=== PATIENT | female | born 1995 | race American Indian/Alaskan Native ===

== ENCOUNTER 2021-10-07 13:26 | Inpatient (IN) | payer OTHER ==
[2021-10-07 15:16] LABS: Bacteria,Urine 4+ /HPF (Negative); Bilirubin,Urine NEG (Negative); Blood,Urine SM (Negative); Color,Urine Yellow (Yellow); Mucus,Urine 2+ /HPF; Protein,Urine <15 mg/dL mg/dL (Negative); Urobilinogen,Urine < 2.0 mg/dL (<2.0)
[2021-10-07 15:34] LABS: Hematocrit 35.4 % (30.3-42.9); Hemoglobin 11.9 gm/dl (10.1-14.3); Mean Corpuscular HGB Conc 34 % (30-34); Mean Corpuscular Volume 85 fl (79-97); Platelet Count 219 K/mm3 (140-440); Red Blood Count 4.17 M/mm3 (3.65-5.03); Red Cell Distribution Width 15.7 % (13.2-15.2)
[2021-10-07 15:48] LABS: Alanine Aminotransferase 11 units/L (7-56); Uric Acid 2.8 mg/dL (3.5-7.6)
[2021-10-07] MEDS ORDERED: ACETAMINOPHEN 500 MG TAB PO ONE (16:00)
[2021-10-07] MEDS ORDERED: ACETAMINOPHEN 325 MG TAB PO PRN (16:43)
--- NOTE | 2021-10-07 16:52 | History and Physical Report ---
History of Present Illness Date of examination: 10/07/21 Date of admission: 10/07/2021 Chief complaint: "My blood pressures were high in the office." History of present illness: 26yo G1 @36.5 weeks sent from the clinic for SRBP (180/100, repeat 170/100). Pt also endorsing headache and spots before her eyes this morning; not currently having headache or spots. Affirms movement and denies vaginal bleeding and LOF. Pt being followed by [facility] for elevated BMI (46). Latest BPP from [facility] was on 09/22 and was 8/8 with EFW 48th. Ultrasound from the week is not yet available. EDC Calculations LMP: 10/30/2021 Gestational Age: 36.5 weeks on admission Past History : 1 Term Births: 0 Premature Births: 0 Living Children: 0 Para: 0 Mult. Births: 0 Prev : 0 Aborta: 0 Elect. Ab: 0 Spont. Ab: 0 Ectopics: 0 Past Medical History: Reviewed and updated today: Asthma Past Surgical History: Reviewed and updated today: negative Family History Summary: Mother - Has Family History of Hypertension - Entered On: 02/24/2021 Social History: Patient is single Smoking History: Patient has never smoked. Risk Factors: Smoked Tobacco Use: Never smoker Smokeless Tobacco Use: Never Counseled to Quit/Cut Down: yes Passive Smoke Exposure: no HIV High Risk Behavior: no Exercise: yes Times/wk: 0 Seatbelt Use: preg-[facility] % Sun Exposure: rarely No Dietary Counseling Reason: pn yes Past Medical History Anesthesia Complications: negative Anemia: negative Autoimmune Disorder: negative Bleeding Disorder: negative Blood Transfusions: negative Breast Disease: negative Diabetes: negative Heart Disease: negative Hypertension: negative Hepatitis/Liver Disease: negative Kidney Disease/UTI: negative Neurologic/Epilepsy/Migraines: negative Phlebitis/Varicosities: negative Psychiatric: negative Pulmonary Disease/Asthma: negative Thyroid Disease: negative Hospitalizations: negative Surgery (Non-home assessment nurse): negative Abnormal PAP: negative RAEGAN Exposure: negative Infertility: negative Uterine Anomaly: negative Uterine Surgery (not C/S): negative Other Gynecologic Problems: negative Social Hx: Patient is single Smoking History: Patient has never smoked. Infection History Hx of STD: none HIV Risk Eval: no Hepatitis B Risk Eval: low risk Personal hx. of genital herpes: no Partner hx. of genital herpes: no Rash, Viral, or Febrile illness since last LMP? no Varicella/Chicken Pox Status: Previous Disease TB Risk: no Genetic History Congenital Heart Defect: Mom: no Dad: no Shireen Disease: Mom: no Dad: no Thalassemia Mom: no Dad: no Neural Tube Defect Mom: no Dad: no Down's Syndrome Mom: no Dad: no Armando-Sachs Mom: no Dad: no Sickle Cell Disease/Trait Mom: no Dad: no Hemophilia Mom: no Dad: no Muscular Dystrophy Mom: no Dad: no Cystic Fibrosis Mom: no Dad: no Cole Chorea Mom: no Dad: no Mental Retardation Mom: no Dad: no Fragile X Mom: no Dad: no Other Genetic/Chromosomal Disorder Mom: no Dad: no Child w/other defect Mom: no Dad: no Enviromental Exposures Xray Exposure: no Medication, drug, or alcohol use since LMP: no Chemical/Other Exposure: no Exposure to Cat Liter: no Hx of Parvovirus (Fifth Disease): no Occupational Exposure to Children: none Active Medications (reviewed today): None Current Allergies (reviewed today): * POLLEN (Critical) Past History Past Medical History: asthma, other (BMI (46)) Past Surgical History: no surgical history Family/Genetic History: hypertension (mother) Social history: no significant social history - Obstetrical History Expected Date of Delivery: 10/30/21 Actual Gestation: 36 Week(s) 5 Day(s) : 1 Para: 0 Hx # Term Pregnancies: 0 Number of Pregnancies: 0 Spontaneous Abortions: 0 Induced : 0 Number of Living Children: 0 Medications and Allergies Allergies Allergy/AdvReac Type Severity Reaction Status Date / Time No Known Allergies Allergy Unverified 10/07/21 14:14 Active Meds: Active Medications Acetaminophen (Acetaminophen 325 Mg Tab) 1,000 mg PO Q6H PRN PRN Reason: Pain, Mild (1-3) Butorphanol Tartrate (Butorphanol 2 Mg/1 Ml Inj) 1 mg IV Q2H PRN PRN Reason: Pain, Moderate(4-6) LABOR PAIN Carboprost Tromethamine (Carboprost Tromethamine 250 Mcg/1 Ml Inj) 250 mcg IM ONCE PRN PRN Reason: Uterine Bleeding Ephedrine Sulfate (Ephedrine Sulfate 50 Mg/1 Ml Inj) 10 mg IV Q2M PRN PRN Reason: Hypotension Fentanyl (Fentanyl 100 Mcg/2 Ml Inj) 100 mcg IV Q2H PRN PRN Reason: Pain,Severe (7-10) LABOR PAIN Oxytocin/Sodium Chloride (Pitocin/Ns 30 Unit/500ml) 30 units in 500 mls @ 2 mls/hr IV TITR PHAN; Protocol Lactated Ringer's (Lactated Ringers) 1,000 mls @ 125 mls/hr IV DIRECT PHAN Oxytocin/Sodium Chloride (Pitocin/Ns 30 Unit/500ml) 30 units in 500 mls @ 40 mls/hr IV TITR PHAN; Protocol Lidocaine (Lidocaine (2%) 20 Mg/1 Ml Vial 20 Ml Mdv) 20 ml INFILTRATI ONCE ONE Stop: 10/07/21 16:44 Loperamide HCl (Loperamide 2 Mg Cap) 2 mg PO ONCE PRN PRN Reason: give with Hemabate Methylergonovine Maleate (Methylergonovine Maleate 0.2 Mg/Ml Vial) 0.2 mg IM ONCE PRN PRN Reason: Uterine Bleeding Mineral Oil (Mineral Oil 30 Ml Oral Liqd) 30 ml PO QHS PRN PRN Reason: Constipation Misoprostol (Misoprostol 200 Mcg Tab) 800 mcg VA ONCE PRN PRN Reason: Uterine Bleeding Naloxone HCl (Naloxone 0.4 Mg/1 Ml Inj) 0.1 mg IV Q2MIN PRN PRN Reason: Res Rate </= 8 or 02 SAT < 92% Ondansetron HCl (Ondansetron 4 Mg/2 Ml Inj) 4 mg IV Q8H PRN PRN Reason: Nausea And Vomiting Oxytocin (Oxytocin 10 Unit/1 Ml Inj) 10 unit IM ONCE PRN PRN Reason: Uterine Bleeding Promethazine HCl (Promethazine 25 Mg Tab) 25 mg PO Q6H PRN PRN Reason: Nausea And Vomiting Terbutaline Sulfate (Terbutaline 1 Mg/1 Ml Inj) 0.25 mg SUB-Q ONCE PRN PRN Reason: Hyperstimulation/Hypertonicity Review of Systems All systems: negative Constitutional: other (headache) Eyes: blurred vision, other (spots before her eyes) Cardiovascular: high blood pressure Respiratory: dyspnea on exertion Breasts: deferred Genitourinary: deferred Rectal Exam: deferred - Vital Signs Vital signs: Vital Signs Pulse BP 97 H 152/86 10/07/21 14:13 10/07/21 14:13 Temp Pulse Resp BP Pulse Ox 102 H 130/75 03/01/22 16:42 10/07/21 16:[address] Padilla regarding patient. Plan to proceed with IOL d/t severe range blood pressures and c/o BISHOP and spots before her eyes earlier today. Currently she denies BISHOP, blurred vision, spots before her eyes, chest pain, shortness of breath, and upper abdominal pain. - Physical Exam Breasts: Positive: deferred Cardiovascular: Regular rate Lungs: Positive: Clear to auscultation, Normal air movement Abdomen: Positive: soft Genitourinary (Female): Positive: normal external genitalia, normal perenium Vulva: both: normal Uterus: Positive: enlarged ( and morbid obesity.) Extremities: Positive: normal - Obstetrical FHR: category 1 Uterine Contraction Monitor Mode: External Cervical Dilatation: 0 (per Dr Padilla @1700) Cervical Effacement Percentage: 20 station: -4 Uterine Contraction Frequency (min): quiet Uterine Contraction Pattern: Absent Uterine Tone Measurement Phase: Resting Results Result Diagrams: 10/07/21 15:05 10/07/21 15:05 Abnormal lab results 10/07/21 10/07/21 10/07/21 Range/Units 13:41 15:05 15:05 RDW 15.7 H (13.2-15.2) % Creatinine 0.5 L (0.6-1.2) mg/dL Uric Acid 2.8 L (3.5-7.6) mg/dL Lactate Dehydrogenase 234 H (91-180) units/L Urine WBC (Auto) 11.0 H (0.0-6.0) /HPF All other labs normal. GBS NEGATIVE HBsAg Screen Negative Negative *1 RPR Non Reactive Non Reactive *2 Rubella Antibodies, IgG [L] <0.90 index Immune >0.99 *3 Non-immune <0.90 Equivocal 0.90 - 0.99 Immune >0.99 ABO Grouping O *4 Rh Factor Positive *5 Please note: Prior records for this patient's ABO / Rh type are not available for additional verification. Antibody Screen Negative Negative *6 Tests: (2) HB Solu + Rflx Frac (502835) Hemoglobin (Hgb) Solubility Negative Negative *31 Tests: (3) HIV Ag/Ab with Reflex ([id number]) HIV Screen 4th Generation wRfx Non Reactive Non Reactive *32 Tests: (4) HCV Antibody reflex to WEI ([id number]) ! HCV Ab <0.1 s/co ratio 0.0-0.9 *33 Tests: (5) Interpretation: ([id number]) ! Interpretation: SPRCS *34 Negative Not infected with HCV, unless recent infection is suspected or other evidence exists to indicate HCV infection. Assessment and Plan A: G1 @ 36.5 weeks sent from the clinic for severe range blood pressures. -Coral Ashton CNM & [facility] - Patient Problems (1) BMI 45.0-49.9, adult Current Visit: Yes Status: Chronic (2) with 36 to 37 weeks completed gestation Current Visit: Yes Status: Acute Plan to address problem: Continue to monitor well-being via cEFM (3) Preeclampsia Current Visit: Yes Status: Acute Qualifiers: Trimester: third trimester Qualified Code(s): O14.93 - Unspecified pre- eclampsia, third trimester Plan to address problem: Admit to L&D for IOL Draw admission labs and pre-eclampsia labs. Initiate IV access. Pt desires to eat and shower prior to starting IOL. OK per provider. Start IOL with low dose Pitocin. Monitor for signs and symptoms of worsening pre-eclampsia. Warning signs and symptoms reviewed with pt. Monitor blood pressure. Please notify provider for BP greater than or equal to 140/90. Hold off on magnesium infusion for now. Anticipate . (4) Rubella non-immune status, antepartum Current Visit: Yes Status: Acute Plan to address problem: Vaccine .
[2021-10-07] MEDS ORDERED: LIDOCAINE (2%) 20 MG/1 ML VIAL 20 ML MDV INFILTRATI NR (17:00)
[2021-10-07] MEDS ORDERED: LOPERAMIDE 2 MG CAP PO PRN (17:00)
[2021-10-07] MEDS ORDERED: CARBOPROST TROMETHAMINE 250 MCG/1 ML INJ IM PRN (17:00)
[2021-10-07] MEDS ORDERED: OXYTOCIN DRIP 30 UNITS/500 ML BAG IV SCH ×2 (17:00)
[2021-10-07] MEDS ORDERED: ePHEDrine SULFATE 50 MG/1 ML INJ IV PRN (17:00)
[2021-10-07] MEDS ORDERED: ACETAMINOPHEN 500 MG TAB PO PRN (17:00)
[2021-10-07] MEDS ORDERED: miSOPROStol 200 MCG TAB PR PRN (17:00)
[2021-10-07] MEDS ORDERED: METHYLERGONOVINE MALEATE 0.2 MG/ML VIAL IM PRN (17:00)
--- NOTE | 2021-10-07 17:26 | Ultrasound Report ---
US OB limited INDICATION: presentation. TECHNIQUE: Transabdominal. COMPARISON: None available. FINDINGS: There is a single intrauterine . Heart Rate: 149 beats per minute. Position: cephalic. IMPRESSION: 1. Cephalic positioning Signer Name: Tenzin Amaro MD Signed: 10/07/2021 5:22 PM Workstation Name: [id number]
[2021-10-07] MEDS ORDERED: OXYTOCIN 10 UNIT/1 ML INJ IM PRN (17:30)
[2021-10-07] MEDS ORDERED: PROMETHAZINE 25 MG TAB PO PRN (17:30)
[2021-10-07] MEDS ORDERED: NALOXONE 0.4 MG/1 ML INJ IV PRN (17:30)
[2021-10-07] MEDS ORDERED: TERBUTALINE 1 MG/1 ML INJ SUB-Q PRN (17:30)
[2021-10-07] MEDS ORDERED: ONDANSETRON 4 MG/2 ML INJ IV PRN (18:00)
[2021-10-07] MEDS: LACTATED RINGERS 1,000 ML IV SCH (20:40)
[2021-10-07] MEDS ORDERED: MINERAL OIL 30 ML ORAL LIQD PO PRN (22:00)
[2021-10-08 00:34] LABS: Creatinine,Urine 241.9 mg/dL (0.1-20.0); Protein/Creatinine Ratio,Urine 0.16
[2021-10-08] MEDS: fentaNYL 100 MCG/2 ML INJ IV PRN (05:18)
[2021-10-08] MEDS: LACTATED RINGERS 1,000 ML IV SCH (05:23)
--- NOTE | 2021-10-08 08:33 | Progress Note ---
Assessment and Plan Pt sitting in bed s/p breakfast and shower, denies all complaints at this time. SVE performed and unchanged. POC d/w pt, questions encouraged and answered. Plan to restart Pitocin 4x4, continuous efm and toco; labor pain management options reviewed with pt. All questions and concerns addressed. Pt verbalizes understanding and agrees to POC. RN present for discussion, verbalizes understanding and agrees to plan. VSSAF, labs reviewed and stable; Monitor for ssx of worsening blood pressures. - Patient Problems (1) Asthma Current Visit: Yes Status: Acute (2) with 36 to 37 weeks completed gestation Current Visit: Yes Status: Acute (3) Rubella non-immune status, antepartum Current Visit: Yes Status: Acute Plan to address problem: vaccine to be offered (4) BMI 45.0-49.9, adult Current Visit: Yes Status: Chronic Subjective - Subjective Date of service: 10/08/21 Principal diagnosis: IUP @36.6wks, IOL Patient reports: movement normal, no new complaints, no loss of fluid, no vaginal bleeding, no contractions Objective - Vital Signs Vital Signs: Vital Signs - 12hr 10/07/21 10/07/21 10/07/21 20:33 20:38 20:41 Temperature Pulse Rate 112 H Respiratory Rate Blood Pressure Blood Pressure [Right] O2 Sat by Pulse 87 78 L 96 Oximetry 10/07/21 10/07/21 10/07/21 20:46 20:51 20:56 Temperature Pulse Rate 105 H 108 H 94 H Respiratory Rate Blood Pressure Blood Pressure [Right] O2 Sat by Pulse 97 97 98 Oximetry 10/07/21 10/07/21 10/07/21 21:01 21:06 21:11 Temperature Pulse Rate 99 H 93 H 103 H Respiratory Rate Blood Pressure Blood Pressure [Right] O2 Sat by Pulse 98 98 97 Oximetry 10/07/21 10/07/21 10/07/21 21:16 21:21 21:26 Temperature Pulse Rate 98 H 84 96 H Respiratory Rate Blood Pressure Blood Pressure [Right] O2 Sat by Pulse 98 97 98 Oximetry 10/07/21 10/07/21 10/07/21 21:31 21:36 21:41 Temperature Pulse Rate 91 H 80 86 Respiratory Rate Blood Pressure Blood Pressure [Right] O2 Sat by Pulse 96 98 98 Oximetry 0310/07/21 10/07/21 21:46 21:51 21:56 Temperature Pulse Rate 74 91 H 93 H Respiratory Rate Blood Pressure Blood Pressure [Right] O2 Sat by Pulse 99 98 97 Oximetry 10/07/21 10/07/21 10/07/21 22:01 22:06 22:11 Temperature Pulse Rate 100 H 98 H 86 Respiratory Rate Blood Pressure Blood Pressure [Right] O2 Sat by Pulse 98 98 97 Oximetry 10/07/21 10/07/21 10/07/21 22:16 22:21 22:26 Temperature Pulse Rate 90 93 H 99 H Respiratory Rate Blood Pressure Blood Pressure [Right] O2 Sat by Pulse 98 98 99 Oximetry 10/07/21 10/07/21 10/07/21 22:31 22:36 22:41 Temperature Pulse Rate 99 H 95 H 92 H Respiratory Rate Blood Pressure Blood Pressure [Right] O2 Sat by Pulse 100 98 98 Oximetry 10/07/21 10/07/21 10/07/21 22:46 22:51 22:56 Temperature Pulse Rate 97 H 90 98 H Respiratory Rate Blood Pressure Blood Pressure [Right] O2 Sat by Pulse 98 97 98 Oximetry 10/07/21 10/07/21 10/07/21 23:00 23:03 23:19 Temperature 97.8 F Pulse Rate 91 H 86 Respiratory 20 Rate Blood Pressure 116/64 Blood Pressure 116/64 [Right] O2 Sat by Pulse 98 Oximetry 10/07/21 10/07/21 10/07/21 23:24 23:29 23:34 Temperature Pulse Rate 93 H 86 86 Respiratory Rate Blood Pressure Blood Pressure [Right] O2 Sat by Pulse 97 99 98 Oximetry 10/07/21 10/07/21 10/07/21 23:39 23:44 23:49 Temperature Pulse Rate 82 87 100 H Respiratory Rate Blood Pressure Blood Pressure [Right] O2 Sat by Pulse 97 96 98 Oximetry 10/07/21 10/07/21 10/08/21 23:54 23:59 00:00 Temperature Pulse Rate 89 79 92 H Respiratory Rate Blood Pressure 132/67 Blood Pressure [Right] O2 Sat by Pulse 97 96 Oximetry 10/08/21 10/08/21 10/08/21 00:04 00:09 00:14 Temperature Pulse Rate 109 H 80 77 Respiratory Rate Blood Pressure Blood Pressure [Right] O2 Sat by Pulse 96 96 98 Oximetry 10/08/21 10/08/21 10/08/21 00:19 00:24 00:29 Temperature Pulse Rate 78 79 84 Respiratory Rate Blood Pressure Blood Pressure [Right] O2 Sat by Pulse 96 97 99 Oximetry 10/08/21 10/08/21 10/08/21 00:34 00:39 00:44 Temperature Pulse Rate 77 100 H 78 Respiratory Rate Blood Pressure Blood Pressure [Right] O2 Sat by Pulse 96 97 97 Oximetry 10/08/21 10/08/21 10/08/21 00:49 00:54 00:59 Temperature Pulse Rate 86 95 H 90 Respiratory Rate Blood Pressure Blood Pressure [Right] O2 Sat by Pulse 97 97 99 Oximetry 10/08/21 10/08/21 10/08/21 01:01 01:04 01:09 Temperature Pulse Rate 88 100 H 99 H Respiratory Rate Blood Pressure 144/64 Blood Pressure [Right] O2 Sat by Pulse 98 98 Oximetry 10/08/21 10/08/21 10/08/21 01:14 01:19 01:24 Temperature Pulse Rate 93 H 77 97 H Respiratory Rate Blood Pressure Blood Pressure [Right] O2 Sat by Pulse 98 98 98 Oximetry 10/08/21 10/08/21 10/08/21 01:29 02:01 04:00 Temperature Pulse Rate 96 H 86 84 Respiratory Rate Blood Pressure 134/69 120/73 Blood Pressure [Right] O2 Sat by Pulse 99 Oximetry 10/08/21 10/08/21 10/08/21 05:01 05:23 06:02 Temperature 98.4 F Pulse Rate 80 67 Respiratory 18 Rate Blood Pressure 120/61 123/59 Blood Pressure [Right] O2 Sat by Pulse Oximetry 10/08/21 10/08/21 07:01 07:16 Temperature 98.6 F Pulse Rate 83 Respiratory 14 Rate Blood Pressure 128/58 Blood Pressure 128/28 [Right] O2 Sat by Pulse Oximetry - Exam Breasts: deferred Cardiovascular: Regular rate Lungs: Normal air movement Abdomen: Present: normal appearance, soft, other (obese). Absent: distention, tenderness, guarding Vulva: both: normal Uterus: Present: normal, other (gravid). Absent: tenderness FHR comments: RN at bedside reapplying external monitors Uterine Contraction Monitor Mode: Palpation Cervical Dilatation: 0 Cervical Effacement Percentage: 0 station: -3 Uterine Tone Measurement Phase: Resting Extremities: normal - Labs Labs: Abnormal Labs 10/07/21 10/07/21 10/07/21 13:41 15:05 15:05 RDW 15.7 H Creatinine 0.5 L Uric Acid 2.8 L Lactate Dehydrogenase 234 H Urine WBC (Auto) 11.0 H Urine Creatinine Urine Total Protein 10/07/21 23:20 RDW Creatinine Uric Acid Lactate Dehydrogenase Urine WBC (Auto) Urine Creatinine 241.9 H Urine Total Protein 38 H Laboratory Results - last 24 hr 10/07/21 10/07/21 10/07/21 13:41 15:05 15:05 WBC 9.1 RBC 4.17 Hgb 11.9 Hct 35.4 MCV 85 MCH 29 MCHC 34 RDW 15.7 H Plt Count 219 Creatinine 0.5 L Estimated GFR > 60 Uric Acid 2.8 L AST 24 ALT 11 Lactate Dehydrogenase 234 H Urine Color Yellow Urine Turbidity Slightly-cloudy Urine pH 5.0 Ur Specific Henderson 1.021 Urine Protein <15 mg/dl Urine Glucose (UA) Neg Urine Ketones Neg Urine Blood Sm Urine Nitrite Neg Urine Bilirubin Neg Urine Urobilinogen < 2.0 Ur Leukocyte Esterase Neg Urine WBC (Auto) 11.0 H Urine RBC (Auto) 39.0 U Epithel Cells (Auto) 6.0 Urine Bacteria (Auto) 4+ Urine Mucus 2+ Urine Creatinine Protein/Creatinin Ratio Urine Total Protein Syphilis IgG/IgM Ab Blood Type Antibody Screen 10/07/21 10/07/21 10/07/21 15:05 15:05 23:20 WBC RBC Hgb Hct MCV MCH MCHC RDW Plt Count Creatinine Estimated GFR Uric Acid AST ALT Lactate Dehydrogenase Urine Color Urine Turbidity Urine pH Ur Specific Henderson Urine Protein Urine Glucose (UA) Urine Ketones Urine Blood Urine Nitrite Urine Bilirubin Urine Urobilinogen Ur Leukocyte Esterase Urine WBC (Auto) Urine RBC (Auto) U Epithel Cells (Auto) Urine Bacteria (Auto) Urine Mucus Urine Creatinine 241.9 H Protein/Creatinin Ratio 0.16 Urine Total Protein 38 H Syphilis IgG/IgM Ab Nonreactive Blood Type O POSITIVE Antibody Screen Negative
[2021-10-08] MEDS: BUTORPHANOL 2 MG/1 ML INJ IV PRN (13:08)
[2021-10-08] MEDS ORDERED: DINOPROSTONE 10 MG VAG SUPP VG SCH (17:30)
--- NOTE | 2021-10-08 19:01 | Progress Note ---
Assessment and Plan Pt is s/p Pitocin induction to max of 20ml/hr today. Pt reports she had dinner and pm care. Denies BISHOP, vision changes, RUQ pain, VB, and LOF at this time. Risks with preeclampsia in discussed. Precautions reviewed. SVE performed and unchanged. POC d/w pt. All questions and concerns addressed. Pt verbalizes understanding and agrees to POC. Cervidil placed per induction protocol; RN present for exam and verbalizes understanding and agreement to POC. VSSAF; Monitor for ssx of worsening blood pressures, continuous efm and toco, antihypertensives to be ordered PRN. Dr. Merino aware. - Patient Problems (1) Asthma Current Visit: Yes Status: Acute (2) with 36 to 37 weeks completed gestation Current Visit: Yes Status: Acute (3) Rubella non-immune status, antepartum Current Visit: Yes Status: Acute Plan to address problem: vaccine to be offered (4) BMI 45.0-49.9, adult Current Visit: Yes Status: Chronic Subjective - Subjective Date of service: 10/08/21 Principal diagnosis: IUP @36.6wks, IOL Patient reports: movement normal, contractions, no new complaints, no loss of fluid, no vaginal bleeding Objective - Vital Signs Vital Signs: Vital Signs - 12hr 10/08/21 10/08/21 10/08/21 07:01 07:16 09:35 Temperature 98.6 F Pulse Rate 83 94 H Respiratory 14 Rate Blood Pressure 128/58 122/76 Blood Pressure 128/28 [Right] 10/08/21 10/08/21 10/08/21 10:00 11:01 13:01 Temperature Pulse Rate 83 75 90 Respiratory Rate Blood Pressure 135/76 121/65 135/72 Blood Pressure [Right] 10/08/21 10/08/21 10/08/21 14:01 14:27 14:29 Temperature 98.6 F Pulse Rate 69 74 74 Respiratory 16 Rate Blood Pressure 131/62 134/70 Blood Pressure 134/70 [Right] 10/08/21 10/08/21 10/08/21 15:29 16:56 17:29 Temperature Pulse Rate 71 74 90 Respiratory Rate Blood Pressure 130/65 128/73 136/80 Blood Pressure [Right] 10/08/21 18:30 Temperature Pulse Rate 91 H Respiratory Rate Blood Pressure 121/61 Blood Pressure [Right] - Exam Breasts: deferred Cardiovascular: Regular rate Lungs: Normal air movement Abdomen: Present: normal appearance, soft, other (obese). Absent: tenderness, guarding Vulva: both: normal Uterus: Present: normal, other (gravid). Absent: tenderness FHR: category 1 FHR comments: difficulty monitoring fetus externally d/t maternal morbid obesity, CAT 1 FHT's noted at this time Uterine Contraction Monitor Mode: External Cervical Dilatation: 0 Cervical Effacement Percentage: 0 station: -3 Uterine Contraction Pattern: Irregular Uterine Tone Measurement Phase: Resting Extremities: normal - Labs Labs: Abnormal Labs 10/07/21 10/07/21 10/07/21 13:41 15:05 15:05 RDW 15.7 H Creatinine 0.5 L Uric Acid 2.8 L Lactate Dehydrogenase 234 H Urine WBC (Auto) 11.0 H Urine Creatinine Urine Total Protein 10/07/21 23:20 RDW Creatinine Uric Acid Lactate Dehydrogenase Urine WBC (Auto) Urine Creatinine 241.9 H Urine Total Protein 38 H Laboratory Results - last 24 hr 10/07/21 10/07/21 10/07/21 15:05 15:05 23:20 Urine Creatinine 241.9 H Protein/Creatinin Ratio 0.16 Urine Total Protein 38 H Syphilis IgG/IgM Ab Nonreactive SARS-CoV-2 (PCR) Blood Type O POSITIVE Antibody Screen Negative 10/08/21 09:17 Urine Creatinine Protein/Creatinin Ratio Urine Total Protein Syphilis IgG/IgM Ab SARS-CoV-2 (PCR) Negative Blood Type Antibody Screen
[2021-10-09] MEDS: LACTATED RINGERS 1,000 ML IV SCH (07:10)
--- NOTE | 2021-10-09 08:23 | Progress Note ---
Assessment and Plan A 26 y.o. @ 37 wks, IOL d/t pre eclampsia. - Patient Problems (1) BMI 45.0-49.9, adult Current Visit: Yes Status: Chronic (2) with 36 to 37 weeks completed gestation Current Visit: Yes Status: Acute Plan to address problem: Continue to monitor status through EFM. (3) Preeclampsia Current Visit: Yes Status: Acute Qualifiers: Trimester: third trimester Qualified Code(s): O14.93 - Unspecified pre- eclampsia, third trimester Plan to address problem: Continue with IOL. Will start low dose Pitocin to continue IOL. Continue to monitor for worsening s/sx of pre eclampsia. If unchanged cervical exam @ 5pm, will order Cervidil to be placed. Monitor blood pressures. (4) Rubella non-immune status, antepartum Current Visit: Yes Status: Acute Subjective - Subjective Date of service: 10/09/21 Principal diagnosis: IUP @37 wks, IOL d/t pre eclampsia Interval history: Pt states that she does not understand why she is being induced. We discussed her blood pressures were elevated and she had a BISHOP, and spots before her eyes. Explained pre eclampsia and serious consequences including . Pt verbalized understanding. Today she denies BISHOP, blurred vision, spots before her eyes, chest pain, shortness of breath, and upper abdominal pain. Patient reports: movement normal, contractions, no new complaints, no loss of fluid, no vaginal bleeding Objective - Vital Signs Vital Signs: Vital Signs - 12hr 10/08/21 10/08/21 10/08/21 20:29 21:29 22:29 Temperature Pulse Rate 93 H 107 H 107 H Blood Pressure 108/57 122/75 124/67 10/08/21 10/08/21 10/09/21 23:19 23:30 00:29 Temperature 98.3 F Pulse Rate 85 107 H Blood Pressure 129/72 141/89 10/09/21 10/09/21 10/09/21 05:05 05:23 06:08 Temperature 98.8 F Pulse Rate 86 78 Blood Pressure 145/86 136/79 10/09/21 07:06 Temperature 97.9 F Pulse Rate Blood Pressure - Exam Breasts: deferred Cardiovascular: Regular rate Lungs: Normal air movement Abdomen: Present: normal appearance Uterus: Present: normal FHR: category 1 (Stearns to trace) Uterine Contraction Monitor Mode: External Cervical Dilatation: 0.5 (Per RN taking care of patient) Cervical Effacement Percentage: 20 station: -3 Uterine Contraction Pattern: Absent Extremities: edema (mild, trace generalized edema.) - Labs Labs: Abnormal Labs 10/07/21 10/07/21 10/07/21 13:41 15:05 15:05 RDW 15.7 H Creatinine 0.5 L Uric Acid 2.8 L Lactate Dehydrogenase 234 H Urine WBC (Auto) 11.0 H Urine Creatinine Urine Total Protein 10/07/21 23:20 RDW Creatinine Uric Acid Lactate Dehydrogenase Urine WBC (Auto) Urine Creatinine 241.9 H Urine Total Protein 38 H Laboratory Results - last 24 hr 10/08/21 09:17 SARS-CoV-2 (PCR) Negative
--- NOTE | 2021-10-09 09:17 | Ultrasound Report ---
ULTRASOUND OBSTETRIC LIMITED INDICATION / CLINICAL INFORMATION: presentation.. TECHNIQUE: Transabdominal ultrasound imaging. COMPARISON: None available. FINDINGS: HEART RATE (beats per minute): 135 AMNIOTIC FLUID INDEX (cm) = not measured PRESENTATION: Cephalic. ADDITIONAL FINDINGS: None. IMPRESSION: Cephalic presentation Signer Name: Guicho Mcdaniel Jr, MD Signed: 10/09/2021 9:13 AM Workstation Name: [id number]
[2021-10-09] MEDS ORDERED: DINOPROSTONE 10 MG VAG SUPP VG SCH (18:00)
--- NOTE | 2021-10-09 18:10 | Event Note ---
Date: 10/09/21 Discussed with patient IOL process, IOL process may take 3-4 days to get her into labor, medications used for IOL, and indications for a . We also discussed the plan for the night: to place Cervidil and check cervix in the AM. Pt verbalized understanding.
--- NOTE | 2021-10-09 19:02 | Event Note ---
Date: 10/09/21 Cervical exam unchanged: 0.5/230/-4. Cervidil placed. Ultrasound today: vertex presentation. Category 1 monitor tracing.
[2021-10-09] MEDS ORDERED: BUTORPHANOL 2 MG/1 ML INJ ONE (23:44)
[2021-10-09] MEDS: BUTORPHANOL 2 MG/1 ML INJ IV PRN (23:45)
[2021-10-10] MEDS: fentaNYL 100 MCG/2 ML INJ IV PRN ×2 (07:41→13:17)
--- NOTE | 2021-10-10 07:44 | Progress Note ---
Assessment and Plan - Patient Problems (1) BMI 45.0-49.9, adult Current Visit: Yes Status: Chronic (2) with 36 to 37 weeks completed gestation Current Visit: Yes Status: Acute Plan to address problem: Continue to monitor status through EFM. (3) Preeclampsia Current Visit: Yes Status: Acute Qualifiers: Trimester: third trimester Qualified Code(s): O14.93 - Unspecified pre- eclampsia, third trimester Plan to address problem: Will allow for breakfast Continue with IOL with Cytotec: 50mcg buccally then 25 mcg vaginally q 4 hrs. Will reassess at 130pm. Continue to monitor blood pressures. Continue to monitor for s/sx of worsening pre eclampsia. (4) Rubella non-immune status, antepartum Current Visit: Yes Status: Acute Subjective - Subjective Date of service: 10/10/21 Principal diagnosis: IUP @37.1 wks, IOL d/t pre eclampsia Interval history: Pt denies BISHOP, blurred vision, spots before her eyes, chest pain, shortness of breath, and upper abdominal pain. Patient reports: movement normal, contractions, no new complaints, no loss of fluid, no vaginal bleeding Objective - Vital Signs Vital Signs: Vital Signs - 12hr 10/09/21 10/09/21 10/09/21 19:45 19:50 19:55 Temperature Pulse Rate 70 66 79 Respiratory Rate Blood Pressure O2 Sat by Pulse 98 99 99 Oximetry 10/09/21 10/09/21 10/09/21 20:00 20:05 20:10 Temperature Pulse Rate 71 61 67 Respiratory Rate Blood Pressure O2 Sat by Pulse 99 98 99 Oximetry 10/09/21 10/09/21 10/09/21 20:15 20:20 20:25 Temperature Pulse Rate 67 64 87 Respiratory Rate Blood Pressure O2 Sat by Pulse 99 99 97 Oximetry 10/09/21 10/09/21 10/09/21 20:30 20:35 20:40 Temperature Pulse Rate 60 67 69 Respiratory Rate Blood Pressure O2 Sat by Pulse 99 98 98 Oximetry 10/09/21 10/09/21 10/09/21 20:45 20:50 20:55 Temperature Pulse Rate 79 77 80 Respiratory Rate Blood Pressure O2 Sat by Pulse 97 97 97 Oximetry 10/09/21 10/09/21 10/09/21 21:00 21:05 21:10 Temperature Pulse Rate 110 H 85 81 Respiratory Rate Blood Pressure O2 Sat by Pulse 99 98 98 Oximetry 10/09/21 10/09/21 10/09/21 21:15 21:20 21:25 Temperature Pulse Rate 89 85 76 Respiratory Rate Blood Pressure O2 Sat by Pulse 98 100 99 Oximetry 10/09/21 10/09/21 10/09/21 21:30 21:35 21:40 Temperature Pulse Rate 71 88 84 Respiratory Rate Blood Pressure O2 Sat by Pulse 100 99 98 Oximetry 10/09/21 10/09/21 10/09/21 21:45 21:50 21:55 Temperature Pulse Rate 81 73 73 Respiratory Rate Blood Pressure O2 Sat by Pulse 97 98 98 Oximetry 10/09/21 10/09/21 10/09/21 22:00 22:05 22:10 Temperature Pulse Rate 73 72 70 Respiratory Rate Blood Pressure O2 Sat by Pulse 97 98 99 Oximetry 10/09/21 10/09/21 10/09/21 22:15 22:20 22:25 Temperature Pulse Rate 87 90 87 Respiratory Rate Blood Pressure O2 Sat by Pulse 98 97 98 Oximetry 10/09/21 10/09/21 10/09/21 22:41 23:45 23:49 Temperature 98.4 F Pulse Rate 99 H Respiratory 18 Rate Blood Pressure O2 Sat by Pulse 99 Oximetry 10/09/21 10/10/21 10/10/21 23:58 00:03 00:08 Temperature Pulse Rate 75 77 68 Respiratory Rate Blood Pressure O2 Sat by Pulse 97 97 98 Oximetry 10/10/21 10/10/21 10/10/21 00:13 00:18 00:23 Temperature Pulse Rate 72 76 72 Respiratory Rate Blood Pressure O2 Sat by Pulse 96 98 96 Oximetry 10/10/21 10/10/21 10/10/21 00:28 00:33 00:38 Temperature Pulse Rate 73 70 85 Respiratory Rate Blood Pressure O2 Sat by Pulse 97 97 98 Oximetry 10/10/21 10/10/21 10/10/21 00:43 00:48 01:11 Temperature Pulse Rate 72 66 84 Respiratory Rate Blood Pressure O2 Sat by Pulse 98 98 97 Oximetry 10/10/21 10/10/21 10/10/21 01:16 01:21 01:26 Temperature Pulse Rate 63 67 62 Respiratory Rate Blood Pressure O2 Sat by Pulse 98 98 98 Oximetry 03/11/2810/10/21 10/10/21 01:31 01:36 01:41 Temperature Pulse Rate 66 69 65 Respiratory Rate Blood Pressure O2 Sat by Pulse 97 98 98 Oximetry 10/10/21 10/10/21 10/10/21 01:46 01:51 01:56 Temperature Pulse Rate 64 62 69 Respiratory Rate Blood Pressure O2 Sat by Pulse 98 98 98 Oximetry 10/10/21 10/10/21 10/10/21 02:01 02:06 02:11 Temperature Pulse Rate 65 67 85 Respiratory Rate Blood Pressure O2 Sat by Pulse 98 98 98 Oximetry 10/10/21 10/10/21 10/10/21 02:16 02:21 02:26 Temperature Pulse Rate 64 65 71 Respiratory Rate Blood Pressure O2 Sat by Pulse 98 98 98 Oximetry 10/10/21 10/10/21 10/10/21 02:31 02:36 02:38 Temperature Pulse Rate 67 87 76 Respiratory Rate Blood Pressure 140/86 O2 Sat by Pulse 99 0 L Oximetry 10/10/21 10/10/21 10/10/21 02:49 02:54 02:59 Temperature Pulse Rate 108 H 72 70 Respiratory Rate Blood Pressure O2 Sat by Pulse 100 98 99 Oximetry 10/10/21 10/10/21 10/10/21 03:04 03:09 03:14 Temperature Pulse Rate 67 76 65 Respiratory Rate Blood Pressure O2 Sat by Pulse 98 98 98 Oximetry 10/10/21 10/10/21 10/10/21 03:19 03:24 03:29 Temperature Pulse Rate 80 76 74 Respiratory Rate Blood Pressure O2 Sat by Pulse 98 98 97 Oximetry 10/10/21 10/10/21 10/10/21 03:34 03:39 03:51 Temperature Pulse Rate 70 87 Respiratory Rate Blood Pressure 127/67 O2 Sat by Pulse 99 100 100 Oximetry 10/10/21 10/10/21 10/10/21 03:56 04:01 04:06 Temperature Pulse Rate 70 64 68 Respiratory Rate Blood Pressure O2 Sat by Pulse 98 98 98 Oximetry 10/10/21 10/10/21 10/10/21 04:11 04:16 04:21 Temperature Pulse Rate 65 74 72 Respiratory Rate Blood Pressure O2 Sat by Pulse 97 97 99 Oximetry 10/10/21 10/10/21 10/10/21 04:26 04:31 04:36 Temperature Pulse Rate 79 69 71 Respiratory Rate Blood Pressure O2 Sat by Pulse 97 99 100 Oximetry 10/10/21 10/10/21 10/10/21 04:39 04:41 04:46 Temperature Pulse Rate 84 65 66 Respiratory Rate Blood Pressure O2 Sat by Pulse 85 99 99 Oximetry 10/10/21 10/10/21 10/10/21 04:51 04:56 05:01 Temperature Pulse Rate 73 65 77 Respiratory Rate Blood Pressure O2 Sat by Pulse 100 98 99 Oximetry 10/10/21 10/10/21 10/10/21 05:06 05:11 05:16 Temperature Pulse Rate 71 84 74 Respiratory Rate Blood Pressure O2 Sat by Pulse 99 100 100 Oximetry 10/10/21 10/10/21 10/10/21 05:21 05:26 05:31 Temperature Pulse Rate 83 69 83 Respiratory Rate Blood Pressure O2 Sat by Pulse 99 100 99 Oximetry 10/10/21 10/10/21 10/10/21 05:36 05:41 05:43 Temperature Pulse Rate 104 H 95 H 87 Respiratory Rate Blood Pressure O2 Sat by Pulse 100 98 92 Oximetry 10/10/21 10/10/21 10/10/21 05:46 05:51 05:56 Temperature Pulse Rate 99 H 66 79 Respiratory Rate Blood Pressure O2 Sat by Pulse 100 99 99 Oximetry 10/10/21 10/10/21 10/10/21 06:01 06:06 06:11 Temperature Pulse Rate 65 67 71 Respiratory Rate Blood Pressure O2 Sat by Pulse 98 99 98 Oximetry 10/10/21 10/10/21 10/10/21 06:16 06:21 06:26 Temperature Pulse Rate 67 78 71 Respiratory Rate Blood Pressure O2 Sat by Pulse 99 98 99 Oximetry 10/10/21 10/10/21 10/10/21 06:31 06:36 06:41 Temperature Pulse Rate 66 86 110 H Respiratory Rate Blood Pressure O2 Sat by Pulse 97 97 99 Oximetry 10/10/21 10/10/21 10/10/21 06:46 06:51 06:53 Temperature Pulse Rate 85 96 H 85 Respiratory Rate Blood Pressure 171/76 131/66 O2 Sat by Pulse 100 99 Oximetry 10/10/21 10/10/21 10/10/21 06:56 07:01 07:06 Temperature Pulse Rate 90 73 102 H Respiratory Rate Blood Pressure O2 Sat by Pulse 98 99 99 Oximetry 10/10/21 10/10/21 10/10/21 07:11 07:16 07:21 Temperature Pulse Rate 107 H 91 H 96 H Respiratory Rate Blood Pressure O2 Sat by Pulse 97 99 98 Oximetry - Exam Narrative Exam: Blood pressure ranges have been 100-140's/60-80's. Breasts: deferred Cardiovascular: Regular rate Lungs: Normal air movement Abdomen: Present: normal appearance, soft Vulva: both: normal FHR: category 1 Uterine Contraction Monitor Mode: External Cervical Dilatation: 0.5 Cervical Effacement Percentage: 30 station: -4 Uterine Contraction Pattern: Absent Extremities: normal - Labs Labs: Abnormal Labs 10/07/21 10/07/21 10/07/21 13:41 15:05 15:05 RDW 15.7 H Creatinine 0.5 L Uric Acid 2.8 L Lactate Dehydrogenase 234 H Urine WBC (Auto) 11.0 H Urine Creatinine Urine Total Protein 10/07/21 23:20 RDW Creatinine Uric Acid Lactate Dehydrogenase Urine WBC (Auto) Urine Creatinine 241.9 H Urine Total Protein 38 H
[2021-10-10] MEDS ORDERED: miSOPROStol 25 MCG TAB PO SCH ×2 (09:00→13:00)
[2021-10-10] MEDS: LACTATED RINGERS 1,000 ML IV SCH ×2 (11:04→20:34)
--- NOTE | 2021-10-10 13:55 | Event Note ---
Date: 10/10/21 Cytotec 25mcg placed vaginally without difficulty. Unchanged cervical exam. Category 1 tracing.
--- NOTE | 2021-10-10 19:23 | Progress Note ---
Assessment and Plan - Patient Problems (1) BMI 45.0-49.9, adult Current Visit: Yes Status: Chronic (2) with 36 to 37 weeks completed gestation Current Visit: Yes Status: Acute (3) Preeclampsia Current Visit: Yes Status: Acute Qualifiers: Trimester: third trimester Qualified Code(s): O14.93 - Unspecified pre- eclampsia, third trimester Plan to address problem: Continue with IOL tonight with low dose Pitocin. Continue to monitor blood pressures. Continue to monitor for worsening s/sx of pre eclampsia. Consider early epidural when patient is 2 cm. IV pain medication before cervical exams. (4) Rubella non-immune status, antepartum Current Visit: Yes Status: Acute Subjective - Subjective Date of service: 10/10/21 Principal diagnosis: IUP @37.1 wks, IOL d/t pre eclampsia Interval history: Pt denies BISHOP, blurred vision, spots before her eyes, chest pain, shortness of breath, and upper abdominal pain. Pt is a difficult cervical exam. Coached through cervical exam. We discussed giving her IV pain medication before exams happens. This was done earlier in the day and it seemed to help the patient relax. Pt agrees to this plan. We also discussed that tonight we will start low dose Pitocin to continue her IOL. She verbalized understanding. Patient reports: movement normal, contractions, no new complaints, no loss of fluid, no vaginal bleeding Objective - Vital Signs Vital Signs: Vital Signs - 12hr 10/10/21 10/10/21 10/10/21 07:21 07:30 10:55 Temperature 98.7 F Pulse Rate 96 H Respiratory Rate Blood Pressure O2 Sat by Pulse 98 Oximetry O2 Sat by Pulse 100 Oximetry [ Bilateral Throughout] 10/10/21 10/10/21 10/10/21 11:06 11:38 12:07 Temperature Pulse Rate 80 74 76 Respiratory Rate Blood Pressure 139/68 141/86 136/88 O2 Sat by Pulse Oximetry O2 Sat by Pulse Oximetry [ Bilateral Throughout] 10/10/21 10/10/21 10/10/21 12:37 13:07 13:17 Temperature Pulse Rate 80 69 Respiratory 13 Rate Blood Pressure 140/83 145/93 O2 Sat by Pulse Oximetry O2 Sat by Pulse Oximetry [ Bilateral Throughout] 10/10/21 10/10/21 10/10/21 13:34 13:37 14:07 Temperature Pulse Rate 67 61 67 Respiratory Rate Blood Pressure 127/65 118/59 89/55 O2 Sat by Pulse Oximetry O2 Sat by Pulse Oximetry [ Bilateral Throughout] 10/10/21 10/10/21 10/10/21 14:37 15:10 15:38 Temperature Pulse Rate 82 74 72 Respiratory Rate Blood Pressure 92/52 156/82 139/84 O2 Sat by Pulse Oximetry O2 Sat by Pulse Oximetry [ Bilateral Throughout] 10/10/21 10/10/21 10/10/21 15:59 16:06 16:38 Temperature 99.2 F Pulse Rate 80 70 Respiratory Rate Blood Pressure 148/84 144/84 O2 Sat by Pulse Oximetry O2 Sat by Pulse Oximetry [ Bilateral Throughout] 10/10/21 10/10/21 10/10/21 17:07 17:58 18:07 Temperature Pulse Rate 86 75 82 Respiratory Rate Blood Pressure 142/76 126/69 127/72 O2 Sat by Pulse Oximetry O2 Sat by Pulse Oximetry [ Bilateral Throughout] 10/10/21 18:38 Temperature Pulse Rate 93 H Respiratory Rate Blood Pressure 148/79 O2 Sat by Pulse Oximetry O2 Sat by Pulse Oximetry [ Bilateral Throughout] - Exam Narrative Exam: Blood pressure ranges have been mostly 120-140's/60-80's. She had one period during the day where she had a blood pressure range of 80-90's/60's and one blood pressure of 156/82. Pt remains asymptomatic. Breasts: deferred Abdomen: Present: normal appearance, soft Vulva: both: normal Uterus: Present: normal FHR: category 1 Uterine Contraction Monitor Mode: External Cervical Dilatation: 1 Cervical Effacement Percentage: 40 station: -3 Uterine Contraction Pattern: Regular Uterine Tone Measurement Phase: Resting Uterine Contraction Intensity: Mild - Labs Labs: Abnormal Labs 10/07/21 10/07/21 10/07/21 13:41 15:05 15:05 RDW 15.7 H Creatinine 0.5 L Uric Acid 2.8 L Lactate Dehydrogenase 234 H Urine WBC (Auto) 11.0 H Urine Creatinine Urine Total Protein 10/07/21 23:20 RDW Creatinine Uric Acid Lactate Dehydrogenase Urine WBC (Auto) Urine Creatinine 241.9 H Urine Total Protein 38 H
[2021-10-10] MEDS ORDERED: OXYTOCIN DRIP 30 UNITS/500 ML BAG IV SCH (19:37)
[2021-10-11] MEDS: fentaNYL 100 MCG/2 ML INJ IV PRN (03:25)
[2021-10-11] MEDS: LACTATED RINGERS 1,000 ML IV SCH ×2 (06:04→15:48)
[2021-10-11 07:49] LABS: Hematocrit 35.9 % (30.3-42.9); Hemoglobin 11.7 gm/dl (10.1-14.3); Mean Corpuscular HGB Conc 33 % (30-34); Mean Corpuscular Volume 85 fl (79-97); Platelet Count 209 K/mm3 (140-440); Red Blood Count 4.24 M/mm3 (3.65-5.03); Red Cell Distribution Width 15.7 % (13.2-15.2)
--- NOTE | 2021-10-11 09:05 | Progress Note ---
Assessment and Plan Pt having difficulty tolerating vaginal exams, exam deferred; per RN pt SVE 50/-3 this am. Pt reports desires for a shower. Denies BISHOP, vision changes, RUQ pain, VB, and LOF at this time. POC d/w pt and RN. Questions encouarged and addressed. Pt verbalizes understanding and agrees to POC. Pt may have early epidural as desired, Pitocin induction per protocol, NPO status. VSSAF; Monitor for ssx of worsening blood pressures, continuous efm and toco, antihypertensives to be ordered PRN. Dr. Merino to be made aware. - Patient Problems (1) Asthma Current Visit: Yes Status: Acute (2) Rubella non-immune status, antepartum Current Visit: Yes Status: Acute Plan to address problem: vaccine to be offered (3) BMI 45.0-49.9, adult Current Visit: Yes Status: Chronic Plan to address problem: SCD's ordered (4) 37 weeks gestation of Current Visit: Yes Status: Acute Subjective - Subjective Date of service: 10/11/21 Principal diagnosis: IUP @37.2 wks, IOL Patient reports: movement normal, contractions, no new complaints, no loss of fluid, no vaginal bleeding Objective - Vital Signs Vital Signs: Vital Signs - 12hr 10/10/21 10/10/21 10/10/21 21:10 21:15 21:20 Temperature Pulse Rate 82 87 98 H Respiratory Rate Blood Pressure O2 Sat by Pulse 97 99 97 Oximetry O2 Sat by Pulse Oximetry [ Bilateral Throughout] 10/10/21 10/10/21 10/10/21 21:25 21:30 22:02 Temperature Pulse Rate 85 94 H 72 Respiratory Rate Blood Pressure O2 Sat by Pulse 98 98 97 Oximetry O2 Sat by Pulse Oximetry [ Bilateral Throughout] 10/10/21 10/10/21 10/10/21 22:05 22:07 22:12 Temperature Pulse Rate 88 79 72 Respiratory Rate Blood Pressure 126/78 O2 Sat by Pulse 98 97 Oximetry O2 Sat by Pulse Oximetry [ Bilateral Throughout] 10/10/21 10/10/21 10/10/21 22:17 22:22 22:27 Temperature Pulse Rate 79 91 H 88 Respiratory Rate Blood Pressure O2 Sat by Pulse 97 97 96 Oximetry O2 Sat by Pulse Oximetry [ Bilateral Throughout] 10/10/21 10/10/21 10/10/21 22:32 22:36 22:37 Temperature Pulse Rate 81 81 84 Respiratory Rate Blood Pressure 133/83 O2 Sat by Pulse 96 99 Oximetry O2 Sat by Pulse Oximetry [ Bilateral Throughout] 10/10/21 10/10/21 10/10/21 22:42 22:47 22:52 Temperature Pulse Rate 80 81 86 Respiratory Rate Blood Pressure O2 Sat by Pulse 100 100 98 Oximetry O2 Sat by Pulse Oximetry [ Bilateral Throughout] 10/10/21 10/10/21 10/10/21 22:57 23:08 23:13 Temperature Pulse Rate 81 83 67 Respiratory Rate Blood Pressure O2 Sat by Pulse 98 97 97 Oximetry O2 Sat by Pulse Oximetry [ Bilateral Throughout] 10/10/21 10/10/21 10/10/21 23:18 23:23 23:28 Temperature Pulse Rate 74 78 74 Respiratory Rate Blood Pressure O2 Sat by Pulse 97 98 98 Oximetry O2 Sat by Pulse Oximetry [ Bilateral Throughout] 10/10/21 10/10/21 10/10/21 23:33 23:38 23:42 Temperature Pulse Rate 74 71 74 Respiratory Rate Blood Pressure O2 Sat by Pulse 98 96 94 Oximetry O2 Sat by Pulse Oximetry [ Bilateral Throughout] 10/10/21 10/10/21 10/10/21 23:43 23:48 23:53 Temperature Pulse Rate 73 76 86 Respiratory Rate Blood Pressure O2 Sat by Pulse 98 95 95 Oximetry O2 Sat by Pulse Oximetry [ Bilateral Throughout] 10/10/21 10/11/21 10/11/21 23:58 00:00 00:03 Temperature Pulse Rate 80 81 86 Respiratory Rate Blood Pressure O2 Sat by Pulse 94 94 95 Oximetry O2 Sat by Pulse Oximetry [ Bilateral Throughout] 10/11/21 10/11/21 10/11/21 00:06 00:08 00:13 Temperature 98.5 F Pulse Rate 83 77 90 Respiratory 18 Rate Blood Pressure 106/56 O2 Sat by Pulse 94 98 96 Oximetry O2 Sat by Pulse Oximetry [ Bilateral Throughout] 10/11/21 10/11/21 10/11/21 00:18 00:23 00:28 Temperature Pulse Rate 71 76 77 Respiratory Rate Blood Pressure O2 Sat by Pulse 96 95 98 Oximetry O2 Sat by Pulse Oximetry [ Bilateral Throughout] 10/11/21 10/11/21 10/11/21 00:29 00:33 00:36 Temperature Pulse Rate 74 70 78 Respiratory Rate Blood Pressure O2 Sat by Pulse 94 89 94 Oximetry O2 Sat by Pulse Oximetry [ Bilateral Throughout] 10/11/21 10/11/21 10/11/21 00:37 00:38 00:41 Temperature Pulse Rate 68 70 94 H Respiratory Rate Blood Pressure 92/55 O2 Sat by Pulse 97 90 Oximetry O2 Sat by Pulse Oximetry [ Bilateral Throughout] 10/11/21 10/11/21 10/11/21 01:04 01:08 01:09 Temperature Pulse Rate 65 69 64 Respiratory Rate Blood Pressure 95/51 O2 Sat by Pulse 98 97 Oximetry O2 Sat by Pulse Oximetry [ Bilateral Throughout] 10/11/21 10/11/21 10/11/21 01:14 01:19 01:24 Temperature Pulse Rate 72 72 69 Respiratory Rate Blood Pressure O2 Sat by Pulse 97 97 98 Oximetry O2 Sat by Pulse Oximetry [ Bilateral Throughout] 10/11/21 10/11/21 10/11/21 01:29 01:34 01:36 Temperature Pulse Rate 73 72 78 Respiratory Rate Blood Pressure O2 Sat by Pulse 96 95 94 Oximetry O2 Sat by Pulse Oximetry [ Bilateral Throughout] 10/11/21 10/11/21 10/11/21 01:37 01:39 01:44 Temperature Pulse Rate 71 75 76 Respiratory Rate Blood Pressure 93/53 O2 Sat by Pulse 95 95 Oximetry O2 Sat by Pulse Oximetry [ Bilateral Throughout] 10/11/21 10/11/21 10/11/21 01:49 01:54 01:59 Temperature Pulse Rate 73 78 81 Respiratory Rate Blood Pressure O2 Sat by Pulse 96 96 96 Oximetry O2 Sat by Pulse Oximetry [ Bilateral Throughout] 10/11/21 10/11/21 10/11/21 02:04 02:07 02:09 Temperature Pulse Rate 90 72 75 Respiratory Rate Blood Pressure 101/58 O2 Sat by Pulse 100 98 Oximetry O2 Sat by Pulse Oximetry [ Bilateral Throughout] 10/11/21 10/11/21 10/11/21 02:14 02:15 02:19 Temperature Pulse Rate 61 87 76 Respiratory Rate Blood Pressure O2 Sat by Pulse 96 92 92 Oximetry O2 Sat by Pulse Oximetry [ Bilateral Throughout] 10/11/21 10/11/21 10/11/21 02:22 02:24 02:29 Temperature Pulse Rate 72 83 85 Respiratory Rate Blood Pressure O2 Sat by Pulse 84 95 97 Oximetry O2 Sat by Pulse Oximetry [ Bilateral Throughout] 10/11/21 10/11/21 10/11/21 02:34 02:36 02:39 Temperature Pulse Rate 67 81 72 Respiratory Rate Blood Pressure 100/58 O2 Sat by Pulse 97 98 Oximetry O2 Sat by Pulse Oximetry [ Bilateral Throughout] 10/11/21 10/11/21 10/11/21 02:54 02:59 03:04 Temperature Pulse Rate 112 H 91 H 80 Respiratory Rate Blood Pressure O2 Sat by Pulse 98 97 97 Oximetry O2 Sat by Pulse Oximetry [ Bilateral Throughout] 10/11/21 10/11/21 10/11/21 03:07 03:09 03:14 Temperature Pulse Rate 81 92 H 75 Respiratory Rate Blood Pressure 108/55 O2 Sat by Pulse 98 98 Oximetry O2 Sat by Pulse Oximetry [ Bilateral Throughout] 10/11/21 10/11/21 10/11/21 03:19 03:24 03:29 Temperature Pulse Rate 81 93 H 79 Respiratory Rate Blood Pressure O2 Sat by Pulse 98 99 98 Oximetry O2 Sat by Pulse Oximetry [ Bilateral Throughout] 10/11/21 10/11/21 10/11/21 03:34 03:37 03:39 Temperature Pulse Rate 76 68 72 Respiratory Rate Blood Pressure 77/37 O2 Sat by Pulse 94 95 Oximetry O2 Sat by Pulse Oximetry [ Bilateral Throughout] 10/11/21 10/11/21 10/11/21 03:43 03:44 03:49 Temperature Pulse Rate 71 90 82 Respiratory Rate Blood Pressure 119/59 O2 Sat by Pulse 96 98 Oximetry O2 Sat by Pulse Oximetry [ Bilateral Throughout] 10/11/21 10/11/21 10/11/21 03:54 03:59 04:01 Temperature 98 F Pulse Rate 95 H 83 Respiratory 18 Rate Blood Pressure O2 Sat by Pulse 99 97 97 Oximetry O2 Sat by Pulse Oximetry [ Bilateral Throughout] 10/11/21 10/11/21 10/11/21 04:04 04:09 04:14 Temperature Pulse Rate 70 75 79 Respiratory Rate Blood Pressure O2 Sat by Pulse 95 95 95 Oximetry O2 Sat by Pulse Oximetry [ Bilateral Throughout] 10/11/21 10/11/21 10/11/21 04:16 04:19 04:22 Temperature Pulse Rate 78 70 75 Respiratory Rate Blood Pressure O2 Sat by Pulse 94 95 94 Oximetry O2 Sat by Pulse Oximetry [ Bilateral Throughout] 10/11/21 10/11/21 10/11/21 04:24 04:27 04:29 Temperature Pulse Rate 79 73 70 Respiratory Rate Blood Pressure O2 Sat by Pulse 95 94 95 Oximetry O2 Sat by Pulse Oximetry [ Bilateral Throughout] 10/11/21 10/11/21 10/11/21 04:34 04:36 04:39 Temperature Pulse Rate 78 73 79 Respiratory Rate Blood Pressure 117/60 O2 Sat by Pulse 97 95 Oximetry O2 Sat by Pulse Oximetry [ Bilateral Throughout] 10/11/21 10/11/21 10/11/21 04:41 04:44 04:46 Temperature Pulse Rate 99 H 74 73 Respiratory Rate Blood Pressure O2 Sat by Pulse 90 91 91 Oximetry O2 Sat by Pulse Oximetry [ Bilateral Throughout] 10/11/21 10/11/21 10/11/21 04:49 04:54 04:56 Temperature Pulse Rate 94 H 97 H 85 Respiratory Rate Blood Pressure O2 Sat by Pulse 90 98 93 Oximetry O2 Sat by Pulse Oximetry [ Bilateral Throughout] 10/11/21 10/11/21 10/11/21 04:59 05:04 05:06 Temperature Pulse Rate 97 H 88 92 H Respiratory Rate Blood Pressure 129/77 O2 Sat by Pulse 98 99 Oximetry O2 Sat by Pulse Oximetry [ Bilateral Throughout] 10/11/21 10/11/21 10/11/21 05:09 05:14 05:39 Temperature Pulse Rate 89 109 H 72 Respiratory Rate Blood Pressure O2 Sat by Pulse 98 97 97 Oximetry O2 Sat by Pulse Oximetry [ Bilateral Throughout] 10/11/21 10/11/21 10/11/21 05:44 05:49 05:54 Temperature Pulse Rate 67 81 69 Respiratory Rate Blood Pressure O2 Sat by Pulse 98 97 97 Oximetry O2 Sat by Pulse Oximetry [ Bilateral Throughout] 10/11/21 10/11/21 10/11/21 05:57 05:59 06:04 Temperature Pulse Rate 79 70 71 Respiratory Rate Blood Pressure O2 Sat by Pulse 94 93 94 Oximetry O2 Sat by Pulse Oximetry [ Bilateral Throughout] 10/11/21 10/11/21 10/11/21 06:05 06:06 06:09 Temperature Pulse Rate 72 71 73 Respiratory Rate Blood Pressure 114/58 O2 Sat by Pulse 93 93 Oximetry O2 Sat by Pulse Oximetry [ Bilateral Throughout] 10/11/21 10/11/21 10/11/21 06:10 06:14 06:17 Temperature Pulse Rate 73 77 107 H Respiratory Rate Blood Pressure O2 Sat by Pulse 93 96 93 Oximetry O2 Sat by Pulse Oximetry [ Bilateral Throughout] 10/11/21 10/11/21 10/11/21 06:19 06:24 06:29 Temperature Pulse Rate 72 65 64 Respiratory Rate Blood Pressure O2 Sat by Pulse 97 95 95 Oximetry O2 Sat by Pulse Oximetry [ Bilateral Throughout] 10/11/21 10/11/21 10/11/21 06:34 06:36 06:39 Temperature Pulse Rate 72 75 64 Respiratory Rate Blood Pressure 128/59 O2 Sat by Pulse 97 96 Oximetry O2 Sat by Pulse Oximetry [ Bilateral Throughout] 10/11/21 10/11/21 10/11/21 06:44 06:49 06:54 Temperature Pulse Rate 70 65 73 Respiratory Rate Blood Pressure O2 Sat by Pulse 95 96 99 Oximetry O2 Sat by Pulse Oximetry [ Bilateral Throughout] 10/11/21 10/11/21 10/11/21 06:59 07:04 07:05 Temperature Pulse Rate 79 65 Respiratory Rate Blood Pressure O2 Sat by Pulse 100 95 Oximetry O2 Sat by Pulse 95 Oximetry [ Bilateral Throughout] 10/11/21 10/11/21 10/11/21 07:06 07:09 07:14 Temperature Pulse Rate 72 77 64 Respiratory Rate Blood Pressure 113/58 O2 Sat by Pulse 94 96 Oximetry O2 Sat by Pulse Oximetry [ Bilateral Throughout] 10/11/21 10/11/21 10/11/21 07:16 07:19 07:21 Temperature Pulse Rate 69 70 90 Respiratory Rate Blood Pressure O2 Sat by Pulse 94 95 94 Oximetry O2 Sat by Pulse Oximetry [ Bilateral Throughout] 10/11/21 10/11/21 10/11/21 07:24 07:29 07:34 Temperature Pulse Rate 73 74 68 Respiratory Rate Blood Pressure O2 Sat by Pulse 98 97 96 Oximetry O2 Sat by Pulse Oximetry [ Bilateral Throughout] 10/11/21 10/11/21 10/11/21 07:36 07:38 07:39 Temperature Pulse Rate 67 66 69 Respiratory Rate Blood Pressure 120/58 O2 Sat by Pulse 92 95 Oximetry O2 Sat by Pulse Oximetry [ Bilateral Throughout] 10/11/21 10/11/21 10/11/21 07:43 07:44 07:49 Temperature Pulse Rate 64 70 75 Respiratory Rate Blood Pressure O2 Sat by Pulse 93 92 97 Oximetry O2 Sat by Pulse Oximetry [ Bilateral Throughout] 10/11/21 10/11/21 10/11/21 07:51 07:54 07:56 Temperature Pulse Rate 65 63 64 Respiratory Rate Blood Pressure O2 Sat by Pulse 92 97 94 Oximetry O2 Sat by Pulse Oximetry [ Bilateral Throughout] 10/11/21 10/11/21 10/11/21 07:59 08:01 08:04 Temperature Pulse Rate 68 66 77 Respiratory Rate Blood Pressure O2 Sat by Pulse 96 94 97 Oximetry O2 Sat by Pulse Oximetry [ Bilateral Throughout] 10/11/21 10/11/21 10/11/21 08:08 08:09 08:11 Temperature 98.6 F Pulse Rate 79 66 Respiratory Rate Blood Pressure 137/70 O2 Sat by Pulse 97 Oximetry O2 Sat by Pulse Oximetry [ Bilateral Throughout] 10/11/21 10/11/21 10/11/21 08:14 08:19 08:24 Temperature Pulse Rate 77 79 102 H Respiratory Rate Blood Pressure O2 Sat by Pulse 98 98 98 Oximetry O2 Sat by Pulse Oximetry [ Bilateral Throughout] 10/11/21 10/11/21 10/11/21 08:29 08:34 08:39 Temperature Pulse Rate 84 66 83 Respiratory Rate Blood Pressure O2 Sat by Pulse 97 97 99 Oximetry O2 Sat by Pulse Oximetry [ Bilateral Throughout] 10/11/21 08:44 Temperature Pulse Rate 94 H Respiratory Rate Blood Pressure O2 Sat by Pulse 100 Oximetry O2 Sat by Pulse Oximetry [ Bilateral Throughout] - Exam Breasts: deferred Cardiovascular: Regular rate Lungs: Normal air movement Abdomen: Present: normal appearance, soft. Absent: distention, tenderness, guarding Uterus: Present: normal, other (gravid, exam limited by obese habitus) FHR: auscultation normal, category 1 Uterine Contraction Monitor Mode: External Cervical Dilatation: 2 (per RN) Cervical Effacement Percentage: 50 station: -3 Uterine Contraction Pattern: Irregular Uterine Tone Measurement Phase: Resting Extremities: normal - Labs Labs: Abnormal Labs 10/07/21 10/07/21 10/07/21 13:41 15:05 15:05 RDW 15.7 H Creatinine 0.5 L Uric Acid 2.8 L Lactate Dehydrogenase 234 H Urine WBC (Auto) 11.0 H Urine Creatinine Urine Total Protein 10/07/21 10/11/21 23:20 07:30 RDW 15.7 H Creatinine Uric Acid Lactate Dehydrogenase Urine WBC (Auto) Urine Creatinine 241.9 H Urine Total Protein 38 H Laboratory Results - last 24 hr 10/11/21 07:30 WBC 8.0 RBC 4.24 Hgb 11.7 Hct 35.9 MCV 85 MCH 28 MCHC 33 RDW 15.7 H Plt Count 209
[2021-10-11] MEDS ORDERED: miSOPROStol 200 MCG TAB PR PRN (11:01)
[2021-10-11] MEDS ORDERED: fentaNYL-BUPIV 2 MCG/ML-0.125% 200 MCG/100 ML BAG EPIDURAL ONE (11:19)
--- NOTE | 2021-10-11 11:44 | Anesthesia Consultation ---
Anesthesia Consult and Med Hx Date of service: 10/11/21 - Airway Anesthetic Teeth Evaluation: Good ROM Head & Neck: Adequate Mental/Hyoid Distance: Adequate Mallampati Class: Class III Intubation Access Assessment: Possibly Difficult - Pulmonary Exam CTA: Yes - Cardiac Exam Cardiac Exam: RRR - Pre-Operative Health Status ASA Pre-Surgery Classification: ASA3 Proposed Anesthetic Plan: Epidural - Pulmonary Hx Smoking: No Hx Asthma: No COPD: No Hx Pneumonia: No Hx Sleep Apnea: No - Cardiovascular System Hx Hypertension: Yes (PIH) Hx Heart Attack/AMI: No Hx Angina: No - Central Nervous System Hx Seizures: No Hx Psychiatric Problems: No - Gastrointestinal Hx Gastroesophageal Reflux Disease: No - Endocrine Hx Renal Disease: No Hx End Stage Renal Disease: No Hx Liver Disease: No Hx Insulin Dependent Diabetes: No Hx Non-Insulin Dependent Diabetes: No Hx Hypothyroidism: No Hx Hyperthyroidism: No - Hematic Hx Anemia: No Hx Sickle Cell Disease: No - Other Systems Hx Alcohol Use: No Hx Obesity: Yes
--- NOTE | 2021-10-11 11:45 | Progress Note ---
Labor Epidural - Labor Epidural Start Time: 11:30 Stop Time: 11:45 Performed by:: GABINO PORRAS ([facility]) Procedure: Patient is requesting epidural for labor and pain. H&P, labs were reviewed. Patient IDed, all questions and concerns were answered, and consent was signed. Timeout was performed at bedside. Patient in sitting position. Sterile prep and drape was performed. 3ml of 1% lidocaine skin wheal at L[3]- L [4]. 17-ga uge Tuohy epidural needle was advanced to loss of resistance with air technique 9cm. Negative CSF negative blood. Epidural catheter advanced to [15] centimeters. [negative] Aspiration [negative] test dose. Sterile dressing applied. Patient tolerated procedure.
[2021-10-11] MEDS ORDERED: ONDANSETRON 4 MG/2 ML INJ IV PRN ×2 (11:46→20:57)
[2021-10-11] MEDS ORDERED: NALOXONE 2 MG/2 ML INJ IV PRN (11:46)
[2021-10-11] MEDS ORDERED: NalbUPHINE 10 MG/1 ML INJ IV PRN (11:46)
[2021-10-11] MEDS ORDERED: ePHEDrine SULFATE 50 MG/1 ML INJ IV PRN (11:46)
[2021-10-11] MEDS ORDERED: diphenhydrAMINE 50 MG/ML VIAL IV PRN (11:46)
[2021-10-11] MEDS ORDERED: LACTATED RINGERS 250 ML IV SOLN IV ONE (11:46)
[2021-10-11] MEDS ORDERED: fentaNYL-BUPIV 2 MCG/ML-0.125% 200 MCG/100 ML BAG EPIDURAL SCH (12:00)
[2021-10-11] MEDS ORDERED: ONDANSETRON 4 MG/2 ML INJ ONE ×2 (15:24→16:36)
[2021-10-11] MEDS ORDERED: KETOROLAC 30 MG/1 ML INJ ONE ×2 (15:24→16:36)
[2021-10-11] MEDS ORDERED: LIDOCAINE 2%/EPINEPHRINE 1:200,000 VIAL (20 ML) INFILTRATI ONE ×2 (15:24→16:36)
[2021-10-11] MEDS ORDERED: dexAMETHasone 20 MG/5 ML VIAL ONE (15:24)
--- NOTE | 2021-10-11 15:53 | Progress Note ---
Assessment and Plan Pt comfortable s/p epidural. SVE performed and tolerated well, remains unchanged at 2/50/-3. Regular contraction pattern noted on Pitocin. Pt with elevated blood pressures. Pt denies BISHOP, vision changes, RUQ pain, VB, and LOF. POC with risks d/w pt for continued induction of labor and possible need for delivery if arrest of dilatation, arrest of descent, worsening ssx, or distress. Questions encouraged. Pt verbalizes understanding and agrees to POC. Pitocin induction to continue per protocol, NPO status to remain, continuous efm and toco, plan for AROM and internal monitors to be placed as soon as able to be performed. Monitor for ssx of worsening blood pressures, antihypertensives to be ordered, Dr. Merino to be made aware. - Patient Problems (1) Asthma Current Visit: Yes Status: Acute (2) Rubella non-immune status, antepartum Current Visit: Yes Status: Acute Plan to address problem: vaccine to be offered (3) BMI 45.0-49.9, adult Current Visit: Yes Status: Chronic Plan to address problem: SCD's continuously (4) 37 weeks gestation of Current Visit: Yes Status: Acute (5) Preeclampsia Current Visit: Yes Status: Acute Qualifiers: Trimester: third trimester Qualified Code(s): O14.93 - Unspecified pre-eclampsia, third trimester Subjective - Subjective Date of service: 10/11/21 Principal diagnosis: IUP @37.2 wks, IOL Patient reports: movement normal, contractions, no new complaints, no loss of fluid, no vaginal bleeding Objective - Vital Signs Vital Signs: Vital Signs - 12hr 10/11/21 10/11/21 10/11/21 03:39 03:43 03:44 Temperature Pulse Rate 72 71 90 Respiratory Rate Blood Pressure 119/59 O2 Sat by Pulse 95 96 Oximetry O2 Sat by Pulse Oximetry [ Bilateral Throughout] 10/11/21 10/11/21 10/11/21 03:49 03:54 03:59 Temperature Pulse Rate 82 95 H 83 Respiratory Rate Blood Pressure O2 Sat by Pulse 98 99 97 Oximetry O2 Sat by Pulse Oximetry [ Bilateral Throughout] 10/11/21 10/11/21 10/11/21 04:01 04:04 04:09 Temperature 98 F Pulse Rate 70 75 Respiratory 18 Rate Blood Pressure O2 Sat by Pulse 97 95 95 Oximetry O2 Sat by Pulse Oximetry [ Bilateral Throughout] 10/11/21 10/11/21 10/11/21 04:14 04:16 04:19 Temperature Pulse Rate 79 78 70 Respiratory Rate Blood Pressure O2 Sat by Pulse 95 94 95 Oximetry O2 Sat by Pulse Oximetry [ Bilateral Throughout] 10/11/21 10/11/21 10/11/21 04:22 04:24 04:27 Temperature Pulse Rate 75 79 73 Respiratory Rate Blood Pressure O2 Sat by Pulse 94 95 94 Oximetry O2 Sat by Pulse Oximetry [ Bilateral Throughout] 10/11/21 10/11/21 10/11/21 04:29 04:34 04:36 Temperature Pulse Rate 70 78 73 Respiratory Rate Blood Pressure 117/60 O2 Sat by Pulse 95 97 Oximetry O2 Sat by Pulse Oximetry [ Bilateral Throughout] 10/11/21 10/11/21 10/11/21 04:39 04:41 04:44 Temperature Pulse Rate 79 99 H 74 Respiratory Rate Blood Pressure O2 Sat by Pulse 95 90 91 Oximetry O2 Sat by Pulse Oximetry [ Bilateral Throughout] 10/11/21 10/11/21 10/11/21 04:46 04:49 04:54 Temperature Pulse Rate 73 94 H 97 H Respiratory Rate Blood Pressure O2 Sat by Pulse 91 90 98 Oximetry O2 Sat by Pulse Oximetry [ Bilateral Throughout] 10/11/21 10/11/21 10/11/21 04:56 04:59 05:04 Temperature Pulse Rate 85 97 H 88 Respiratory Rate Blood Pressure O2 Sat by Pulse 93 98 99 Oximetry O2 Sat by Pulse Oximetry [ Bilateral Throughout] 10/11/21 10/11/21 10/11/21 05:06 05:09 05:14 Temperature Pulse Rate 92 H 89 109 H Respiratory Rate Blood Pressure 129/77 O2 Sat by Pulse 98 97 Oximetry O2 Sat by Pulse Oximetry [ Bilateral Throughout] 10/11/21 10/11/21 10/11/21 05:39 05:44 05:49 Temperature Pulse Rate 72 67 81 Respiratory Rate Blood Pressure O2 Sat by Pulse 97 98 97 Oximetry O2 Sat by Pulse Oximetry [ Bilateral Throughout] 10/11/21 10/11/21 10/11/21 05:54 05:57 05:59 Temperature Pulse Rate 69 79 70 Respiratory Rate Blood Pressure O2 Sat by Pulse 97 94 93 Oximetry O2 Sat by Pulse Oximetry [ Bilateral Throughout] 10/11/21 10/11/21 10/11/21 06:04 06:05 06:06 Temperature Pulse Rate 71 72 71 Respiratory Rate Blood Pressure 114/58 O2 Sat by Pulse 94 93 Oximetry O2 Sat by Pulse Oximetry [ Bilateral Throughout] 10/11/21 10/11/21 10/11/21 06:09 06:10 06:14 Temperature Pulse Rate 73 73 77 Respiratory Rate Blood Pressure O2 Sat by Pulse 93 93 96 Oximetry O2 Sat by Pulse Oximetry [ Bilateral Throughout] 10/11/21 10/11/21 10/11/21 06:17 06:19 06:24 Temperature Pulse Rate 107 H 72 65 Respiratory Rate Blood Pressure O2 Sat by Pulse 93 97 95 Oximetry O2 Sat by Pulse Oximetry [ Bilateral Throughout] 10/11/21 10/11/21 10/11/21 06:29 06:34 06:36 Temperature Pulse Rate 64 72 75 Respiratory Rate Blood Pressure 128/59 O2 Sat by Pulse 95 97 Oximetry O2 Sat by Pulse Oximetry [ Bilateral Throughout] 10/11/21 10/11/21 10/11/21 06:39 06:44 06:49 Temperature Pulse Rate 64 70 65 Respiratory Rate Blood Pressure O2 Sat by Pulse 96 95 96 Oximetry O2 Sat by Pulse Oximetry [ Bilateral Throughout] 10/11/21 10/11/21 10/11/21 06:54 06:59 07:04 Temperature Pulse Rate 73 79 65 Respiratory Rate Blood Pressure O2 Sat by Pulse 99 100 95 Oximetry O2 Sat by Pulse Oximetry [ Bilateral Throughout] 10/11/21 10/11/21 10/11/21 07:05 07:06 07:09 Temperature Pulse Rate 72 77 Respiratory Rate Blood Pressure 113/58 O2 Sat by Pulse 94 Oximetry O2 Sat by Pulse 95 Oximetry [ Bilateral Throughout] 10/11/21 10/11/21 10/11/21 07:14 07:16 07:19 Temperature Pulse Rate 64 69 70 Respiratory Rate Blood Pressure O2 Sat by Pulse 96 94 95 Oximetry O2 Sat by Pulse Oximetry [ Bilateral Throughout] 10/11/21 10/11/21 10/11/21 07:21 07:24 07:29 Temperature Pulse Rate 90 73 74 Respiratory Rate Blood Pressure O2 Sat by Pulse 94 98 97 Oximetry O2 Sat by Pulse Oximetry [ Bilateral Throughout] 03/05/22 03/05/22 03/05/22 07:34 07:36 07:38 Temperature Pulse Rate 68 67 66 Respiratory Rate Blood Pressure 120/58 O2 Sat by Pulse 96 92 Oximetry O2 Sat by Pulse Oximetry [ Bilateral Throughout] 10/11/21 10/11/21 10/11/21 07:39 07:43 07:44 Temperature Pulse Rate 69 64 70 Respiratory Rate Blood Pressure O2 Sat by Pulse 95 93 92 Oximetry O2 Sat by Pulse Oximetry [ Bilateral Throughout] 10/11/21 10/11/21 10/11/21 07:49 07:51 07:54 Temperature Pulse Rate 75 65 63 Respiratory Rate Blood Pressure O2 Sat by Pulse 97 92 97 Oximetry O2 Sat by Pulse Oximetry [ Bilateral Throughout] 10/11/21 10/11/21 10/11/21 07:56 07:59 08:01 Temperature Pulse Rate 64 68 66 Respiratory Rate Blood Pressure O2 Sat by Pulse 94 96 94 Oximetry O2 Sat by Pulse Oximetry [ Bilateral Throughout] 10/11/21 10/11/21 10/11/21 08:04 08:08 08:09 Temperature Pulse Rate 77 79 66 Respiratory Rate Blood Pressure 137/70 O2 Sat by Pulse 97 97 Oximetry O2 Sat by Pulse Oximetry [ Bilateral Throughout] 10/11/21 10/11/21 10/11/21 08:11 08:14 08:19 Temperature 98.6 F Pulse Rate 77 79 Respiratory Rate Blood Pressure O2 Sat by Pulse 98 98 Oximetry O2 Sat by Pulse Oximetry [ Bilateral Throughout] 10/11/21 10/11/21 10/11/21 08:24 08:29 08:34 Temperature Pulse Rate 102 H 84 66 Respiratory Rate Blood Pressure O2 Sat by Pulse 98 97 97 Oximetry O2 Sat by Pulse Oximetry [ Bilateral Throughout] 10/11/21 10/11/21 10/11/21 08:39 08:44 09:07 Temperature Pulse Rate 83 94 H 85 Respiratory Rate Blood Pressure 144/77 O2 Sat by Pulse 99 100 98 Oximetry O2 Sat by Pulse Oximetry [ Bilateral Throughout] 10/11/21 10/11/21 10/11/21 09:12 09:17 11:27 Temperature Pulse Rate 70 72 78 Respiratory Rate Blood Pressure 141/89 O2 Sat by Pulse 98 97 Oximetry O2 Sat by Pulse Oximetry [ Bilateral Throughout] 10/11/21 10/11/21 10/11/21 11:30 11:35 11:36 Temperature Pulse Rate 44 L 78 81 Respiratory Rate Blood Pressure 154/88 O2 Sat by Pulse 89 99 Oximetry O2 Sat by Pulse Oximetry [ Bilateral Throughout] 10/11/21 10/11/21 10/11/21 11:38 11:40 11:45 Temperature Pulse Rate 78 79 89 Respiratory Rate Blood Pressure 158/83 162/87 154/85 O2 Sat by Pulse 99 100 Oximetry O2 Sat by Pulse Oximetry [ Bilateral Throughout] 10/11/21 10/11/21 10/11/21 11:47 11:50 11:53 Temperature Pulse Rate 84 101 H 80 Respiratory Rate Blood Pressure 146/81 158/92 O2 Sat by Pulse 99 Oximetry O2 Sat by Pulse Oximetry [ Bilateral Throughout] 10/11/21 10/11/21 10/11/21 11:55 12:00 12:05 Temperature Pulse Rate 76 78 79 Respiratory Rate Blood Pressure O2 Sat by Pulse 98 96 96 Oximetry O2 Sat by Pulse Oximetry [ Bilateral Throughout] 10/11/21 10/11/21 10/11/21 12:07 12:08 12:10 Temperature Pulse Rate 76 68 103 H Respiratory Rate Blood Pressure 144/78 O2 Sat by Pulse 94 96 Oximetry O2 Sat by Pulse Oximetry [ Bilateral Throughout] 10/11/21 10/11/21 10/11/21 12:15 12:20 12:23 Temperature Pulse Rate 78 75 81 Respiratory Rate Blood Pressure 149/86 O2 Sat by Pulse 98 96 Oximetry O2 Sat by Pulse Oximetry [ Bilateral Throughout] 10/11/21 10/11/21 10/11/21 12:25 12:27 12:30 Temperature Pulse Rate 63 65 65 Respiratory Rate Blood Pressure O2 Sat by Pulse 95 94 94 Oximetry O2 Sat by Pulse Oximetry [ Bilateral Throughout] 10/11/21 10/11/21 10/11/21 12:33 12:34 12:35 Temperature 98.6 F Pulse Rate 67 65 Respiratory Rate Blood Pressure O2 Sat by Pulse 92 92 Oximetry O2 Sat by Pulse Oximetry [ Bilateral Throughout] 10/11/21 10/11/21 10/11/21 12:38 12:40 12:45 Temperature Pulse Rate 65 68 74 Respiratory Rate Blood Pressure 124/71 O2 Sat by Pulse 92 92 Oximetry O2 Sat by Pulse Oximetry [ Bilateral Throughout] 10/11/21 10/11/21 10/11/21 12:50 12:53 12:54 Temperature Pulse Rate 73 62 69 Respiratory Rate Blood Pressure 126/68 O2 Sat by Pulse 92 93 Oximetry O2 Sat by Pulse Oximetry [ Bilateral Throughout] 10/11/21 10/11/21 10/11/21 12:55 13:00 13:05 Temperature Pulse Rate 72 72 70 Respiratory Rate Blood Pressure O2 Sat by Pulse 93 91 91 Oximetry O2 Sat by Pulse Oximetry [ Bilateral Throughout] 10/11/21 10/11/21 10/11/21 13:08 13:10 13:11 Temperature Pulse Rate 76 61 66 Respiratory Rate Blood Pressure 122/66 O2 Sat by Pulse 96 94 Oximetry O2 Sat by Pulse Oximetry [ Bilateral Throughout] 10/11/21 10/11/21 10/11/21 13:15 13:16 13:20 Temperature Pulse Rate 65 64 63 Respiratory Rate Blood Pressure O2 Sat by Pulse 96 93 100 Oximetry O2 Sat by Pulse Oximetry [ Bilateral Throughout] 10/11/21 10/11/21 10/11/21 13:23 13:25 13:30 Temperature Pulse Rate 71 76 64 Respiratory Rate Blood Pressure 147/88 O2 Sat by Pulse 99 100 Oximetry O2 Sat by Pulse Oximetry [ Bilateral Throughout] 10/11/21 10/11/21 10/11/21 13:33 13:35 13:38 Temperature Pulse Rate 66 70 64 Respiratory Rate Blood Pressure 137/81 O2 Sat by Pulse 0 L 100 Oximetry O2 Sat by Pulse Oximetry [ Bilateral Throughout] 10/11/21 10/11/21 10/11/21 13:40 13:45 13:47 Temperature Pulse Rate 61 60 65 Respiratory Rate Blood Pressure O2 Sat by Pulse 98 95 93 Oximetry O2 Sat by Pulse Oximetry [ Bilateral Throughout] 10/11/21 10/11/21 10/11/21 13:50 13:53 13:54 Temperature Pulse Rate 63 64 66 Respiratory Rate Blood Pressure 133/88 O2 Sat by Pulse 94 93 Oximetry O2 Sat by Pulse Oximetry [ Bilateral Throughout] 10/11/21 10/11/21 10/11/21 13:55 14:00 14:05 Temperature Pulse Rate 75 56 L 68 Respiratory Rate Blood Pressure O2 Sat by Pulse 95 94 98 Oximetry O2 Sat by Pulse Oximetry [ Bilateral Throughout] 10/11/21 10/11/21 10/11/21 14:08 14:10 14:15 Temperature Pulse Rate 59 L 61 67 Respiratory Rate Blood Pressure 133/78 O2 Sat by Pulse 97 95 Oximetry O2 Sat by Pulse Oximetry [ Bilateral Throughout] 10/11/21 10/11/21 10/11/21 14:17 14:20 14:23 Temperature Pulse Rate 69 74 83 Respiratory Rate Blood Pressure 138/91 O2 Sat by Pulse 94 98 Oximetry O2 Sat by Pulse Oximetry [ Bilateral Throughout] 10/11/21 10/11/21 10/11/21 14:25 14:30 14:35 Temperature Pulse Rate 82 74 74 Respiratory Rate Blood Pressure O2 Sat by Pulse 99 100 100 Oximetry O2 Sat by Pulse Oximetry [ Bilateral Throughout] 10/11/21 10/11/21 10/11/21 14:38 14:40 14:42 Temperature Pulse Rate 74 71 80 Respiratory Rate Blood Pressure 156/106 152/87 O2 Sat by Pulse 99 Oximetry O2 Sat by Pulse Oximetry [ Bilateral Throughout] 10/11/21 10/11/21 10/11/21 14:45 14:50 14:53 Temperature Pulse Rate 70 70 80 Respiratory Rate Blood Pressure 147/89 O2 Sat by Pulse 100 100 Oximetry O2 Sat by Pulse Oximetry [ Bilateral Throughout] 10/11/21 10/11/21 10/11/21 14:55 15:00 15:05 Temperature Pulse Rate 77 70 68 Respiratory Rate Blood Pressure O2 Sat by Pulse 99 100 100 Oximetry O2 Sat by Pulse Oximetry [ Bilateral Throughout] 10/11/21 10/11/21 10/11/21 15:08 15:10 15:15 Temperature Pulse Rate 67 69 68 Respiratory Rate Blood Pressure 136/82 O2 Sat by Pulse 99 100 Oximetry O2 Sat by Pulse Oximetry [ Bilateral Throughout] 10/11/21 10/11/21 10/11/21 15:20 15:23 15:25 Temperature Pulse Rate 75 82 73 Respiratory Rate Blood Pressure 142/87 O2 Sat by Pulse 100 100 Oximetry O2 Sat by Pulse Oximetry [ Bilateral Throughout] 10/11/21 10/11/21 15:30 15:35 Temperature Pulse Rate 83 71 Respiratory Rate Blood Pressure O2 Sat by Pulse 100 100 Oximetry O2 Sat by Pulse Oximetry [ Bilateral Throughout] - Exam Breasts: deferred Cardiovascular: Regular rate Lungs: Normal air movement Abdomen: Present: normal appearance, soft. Absent: distention, tenderness, guarding Vulva: both: normal Uterus: Present: normal, other (gravid, exam limited by obese habitus) FHR: auscultation normal, category 1, category 2 FHR comments: FHT's with some minimal and moderate variability with accelerations Uterine Contraction Monitor Mode: External Cervical Dilatation: 2 Cervical Effacement Percentage: 50 station: -3 Uterine Contraction Frequency (min): 2-3 Uterine Contraction Pattern: Regular Uterine Tone Measurement Phase: Resting Extremities: normal - Labs Labs: Abnormal Labs 10/07/21 10/07/21 10/07/21 13:41 15:05 15:05 RDW 15.7 H Creatinine 0.5 L Uric Acid 2.8 L Lactate Dehydrogenase 234 H Urine WBC (Auto) 11.0 H Urine Creatinine Urine Total Protein 10/07/21 10/11/21 23:20 07:30 RDW 15.7 H Creatinine Uric Acid Lactate Dehydrogenase Urine WBC (Auto) Urine Creatinine 241.9 H Urine Total Protein 38 H Laboratory Results - last 24 hr 10/11/21 10/11/21 10/11/21 07:30 07:30 09:11 WBC 8.0 RBC 4.24 Hgb 11.7 Hct 35.9 MCV 85 MCH 28 MCHC 33 RDW 15.7 H Plt Count 209 Rubella IgG Antibody Immune Blood Type O POSITIVE Antibody Screen Negative
[2021-10-11] MEDS ORDERED: BUPIVACAINE/PF (0.25%) 2.5 MG/ML 30 ML VIAL INFILTRATI ONE (16:09)
--- NOTE | 2021-10-11 16:25 | Event Note ---
Date: 10/11/21 Patient with failed labor induction now with increasing blood pressures and remote from vaginal delivery. Indication for section discussed. Patient informed the risks of the surgery include bleeding possibly bleeding heavy enough to require blood transfusion, infection possible damage to bowel bladder ureter. All questions answered. Patient agrees to proceed
--- NOTE | 2021-10-11 16:47 | Anesthesia Day of Surgery ---
Anesthesia Day of Surgery - Day of Surgery Patient Examined: Yes Patient H&P Reviewed: Yes Patient is NPO: Yes Beta Blockers: No Cardiac Clearance: No Pulmonary Clearance: No Mc's Test: N/A
[2021-10-11] MEDS ORDERED: METOCLOPRAMIDE 10 MG/2 ML INJ IV ONE (17:00)
[2021-10-11] MEDS ORDERED: OXYTOCIN DRIP 30 UNITS/500 ML BAG IV SCH (17:00)
[2021-10-11] MEDS ORDERED: ceFAZolin/Water 2 GM/20 ML 2 GM/20 ML SYRINGE IV NR (17:00)
[2021-10-11] MEDS ORDERED: LACTATED RINGERS 1,000 ML IV SCH (17:00)
[2021-10-11] MEDS ORDERED: FAMOTIDINE 20 MG/2 ML INJ IV ONE (17:00)
[2021-10-11] MEDS ORDERED: BICITRA ORAL LIQD 30ML PO ONE (17:00)
[2021-10-11] MEDS ORDERED: MAGNESIUM SULFATE 4 GM/100 ML BAG IV ONE (17:56)
[2021-10-11] MEDS ORDERED: METOCLOPRAMIDE 10 MG/2 ML INJ ONE (19:16)
[2021-10-11] MEDS ORDERED: OXYTOCIN 10 UNIT/1 ML INJ ONE (19:56)
[2021-10-11] MEDS ORDERED: SODIUM CHLORIDE 0.9% IRR 1,500 ML BOTTLE IR ONE (20:00)
[2021-10-11] MEDS ORDERED: WATER FOR IRRIG STERILE 1,500 ML BOTTLE IR ONE (20:00)
[2021-10-11] MEDS ORDERED: MORPHINE PF 10MG/10 ML AMPULE ONE (20:29)
[2021-10-11] MEDS ORDERED: PROMETHAZINE 25 MG RECT SUPP PR PRN (20:57)
[2021-10-11] MEDS ORDERED: NALOXONE 0.4 MG/1 ML INJ IV PRN (20:57)
--- NOTE | 2021-10-11 21:21 | Operative Report ---
Operative Report Operative Report: Date of procedure: October 11, 2021 Pre-operative diagnosis: Intrauterine at 37 weeks with preeclampsia failed labor induction and morbidly obese Post-operative diagnosis: Same Procedure name(s): Primary low transverse section Surgeon: Micheal Merino MD Casting Wheel Operator: Lupe Almanzar, certified nurse bank worker Anesthesia: Epidural EBL: Quantitative blood loss 491 cc Complications: None Findings: Patient with normal uterus tubes and ovaries bilaterally. Female infant weight 6 pounds 5 ounces Apgars 7 at 1 minute and 9 at 5 minutes with nuchal cord x1 Specimen(s): None Procedure: The patient was brought to the operating room. Her epidural was dosed was placed without any complications. She was then placed in left lateral tilt. Prepped and draped in the usual sterile manner. After testing for adequate anesthesia level, a Pfannenstiel incision was made. This incision was taken down to the fascia. The fascia was then nicked in the midline. This incision was extended out laterally with Floyd scissors. The fascia was then sharply and bluntly from the underlying rectus muscles. The rectus muscles were bluntly and sharply . The peritoneum was then entered with the electric operator's fingers. This incision was spread vertically with care not to damage the bladder below. The Vito self-retaining tractor was then placed without any difficulty. The bladder flap was then formed sharply and bluntly with Metzenbaum scissors. A transverse incision was made in lower uterine segment. This incision was extended laterally with the operators fingers. The amniotic sac was then entered bluntly with the electric operator's fingers. The infant was del ivered from the vertex position with assistance of vacuum. Bulb suction on the mother's abdomen. Cord was double clamped and cut. The infant was then passed to the nursery personnel who were in attendance. The above scores were given by the nursery personnel. The placenta was then bluntly removed. The uterus was then externalized and wiped clean the remaining products. The uterine incision was closed in layers. The first incision was closed in a locking manner using 0 Vicryl. This was followed by imbricating stitch also with 0 Vicryl. This closure was hemostatic. The bladder flap was copiously irrigated and found to be hemostatic. The pelvis was copiously irrigated and found to be hemostatic. The uterus was then placed back to the patient's abdomen. The retractors were removed. The rectus muscles were inspected and found to be hemostatic. The fascia was then closed in a running manner using 0 Vicryl. This incision was hemostatic irrigation Bovie. The skin was re approximated with 4-0 Vicryl subcuticularly. Dermabond placed on incision. The patient tolerated procedure well. Her urine was clear. The was admitted to the well baby nursery. The patient was accompanied to recovery room in good condition. Instrument count correct times 3.
[2021-10-11] MEDS: MAGNESIUM SULFATE 40GM/1000ML 40 GM/1,000 ML BAG IV SCH (21:55)
[2021-10-12] MEDS ORDERED: MAGNESIUM HYDROXIDE (MOM) ORAL LIQD UDC PO PRN (00:19)
[2021-10-12] MEDS ORDERED: WITCH HAZEL/ GLYCERIN PAD TP PRN (00:19)
[2021-10-12] MEDS ORDERED: OXYTOCIN DRIP 30 UNITS/500 ML BAG IV SCH (00:19)
[2021-10-12] MEDS ORDERED: ONDANSETRON 4 MG/2 ML INJ IV PRN (00:19)
[2021-10-12] MEDS ORDERED: D5W/LACTATED RINGERS 1,000 ML IV SCH (00:19)
[2021-10-12] MEDS ORDERED: LANOLIN/ZINC/DIMETHICONE (LANSINOH) 7 GM TP PRN (00:19)
[2021-10-12] MEDS ORDERED: NALOXONE 0.4 MG/1 ML INJ IV PRN (00:19)
[2021-10-12] MEDS: KETOROLAC 30 MG/1 ML INJ IV SCH ×4 (00:54→21:00)
[2021-10-12] MEDS ORDERED: LACTATED RINGERS 1,000 ML ONE (02:53)
[2021-10-12] MEDS: ceFAZolin/NS 1 GM/50 ML 1 GM/50 ML BAG IV SCH ×2 (03:00→10:45)
[2021-10-12] MEDS ORDERED: MEASLES, MUMPS & RUBELLA 12,500 UNIT/0.5 ML VACCINE SUB-Q ONE (06:00)
[2021-10-12] MEDS ORDERED: TETANUS,DIPH,PERTUSS(ACELL) VACCINE 0.5 ML SYRINGE IM ONE (06:00)
--- NOTE | 2021-10-12 09:16 | Post Anesthesia Evaluation ---
- Post Anesthesia Evaluation Patient Participated: Yes Airway Patent: Yes Stable Respiratory Function: Yes Nausea/Vomiting: No Temp > 96.8F: Yes Pain Manageable: Yes Adequeate Hydration: Yes Anesthesia Complications: No Block Receding Appropriately: Yes Patient on Ventilator: No
[2021-10-12] MEDS: FERROUS SULFATE 325 MG TAB PO SCH (09:29)
[2021-10-12] MEDS ORDERED: PRENATAL VIT27-FE FUMARATE-FOLIC ACID VIT TAB PO SCH (10:00)
[2021-10-12 12:45] LABS: Hemoglobin 9.8 gm/dl (10.1-14.3)
--- NOTE | 2021-10-12 13:28 | Progress Note ---
Assessment and Plan Pt denies all complaints. POC with precautions reviewed. All questions and concerns addressed. - Patient Problems (1) Asthma Current Visit: Yes Status: Acute (2) Rubella non-immune status, antepartum Current Visit: Yes Status: Acute Plan to address problem: vaccine ordered (3) BMI 45.0-49.9, adult Current Visit: Yes Status: Chronic Plan to address problem: SCD's continuously (4) Preeclampsia Current Visit: Yes Status: Acute Qualifiers: Trimester: third trimester Qualified Code(s): O14.93 - Unspecified pre- eclampsia, third trimester Plan to address problem: continue Magnesium Sulfate IV [id number] post delivery Mag level q6h monitor BP per protocol and for ssx of worsening condition antihypertensives as ordered (5) delivery delivered Current Visit: Yes Status: Acute Plan to address problem: continue postoperative pathway Subjective - Subjective Date of service: 10/12/21 Principal diagnosis: s/p delivery, Preeclampsia on Magnesium Sulfate Patient reports: appetite normal, pain well controlled, no flatus : doing well Objective - Vital Signs Latest vital signs: Vital Signs Temp Pulse Resp BP Pulse Ox Pulse Ox 10/12/21 13:25 108 H 95 10/12/21 13:20 98 H 97 10/12/21 13:18 100 H 147/81 10/12/21 13:15 101 H 97 10/12/21 13:10 97 H 95 10/12/21 13:05 98 H 96 10/12/21 13:00 97 H 98 10/12/21 12:55 94 H 96 10/12/21 12:50 92 H 96 10/12/21 12:48 96 H 144/82 10/12/21 12:45 93 H 93 10/12/21 12:40 97 H 97 10/12/21 12:35 97 H 97 10/12/21 12:30 102 H 97 10/12/21 12:25 102 H 97 10/12/21 12:20 98 H 95 10/12/21 12:18 96 H 126/73 10/12/21 12:15 99 H 94 10/12/21 12:10 96 H 98 10/12/21 12:05 96 H 96 10/12/21 12:00 101 H 94 10/12/21 11:55 102 H 95 10/12/21 11:50 98 H 96 10/12/21 11:48 100 H 125/74 10/12/21 11:45 100 H 96 10/12/21 11:40 95 H 94 10/12/21 11:35 92 H 96 10/12/21 11:30 96 H 96 10/12/21 11:25 95 H 139/80 95 10/12/21 11:20 105 H 97 10/12/21 11:18 114 H 174/101 10/12/21 11:15 98 H 96 10/12/21 11:10 103 H 97 10/12/21 11:05 95 H 97 10/12/21 11:00 93 H 95 10/12/21 10:55 97 H 94 10/12/21 10:50 94 H 97 10/12/21 10:48 96 H 141/83 10/12/21 10:45 98 H 96 10/12/21 10:40 97 H 97 10/12/21 10:35 96 H 97 10/12/21 10:30 104 H 97 10/12/21 10:25 97 H 96 10/12/21 10:20 98 H 97 10/12/21 10:18 101 H 141/88 10/12/21 10:15 96 H 97 10/12/21 10:10 100 H 97 10/12/21 10:05 102 H 97 10/12/21 10:00 98 H 98 10/12/21 09:55 97 H 95 10/12/21 09:50 98 H 94 10/12/21 09:48 100 H 147/84 10/12/21 09:45 91 H 94 10/12/21 09:40 94 H 96 10/12/21 09:35 97 H 97 10/12/21 09:34 102 H 92 10/12/21 09:30 97 H 97 10/12/21 09:25 95 H 97 10/12/21 09:20 89 94 10/12/21 09:18 93 H 147/84 10/12/21 09:15 85 94 10/12/21 09:10 95 H 94 10/12/21 09:05 90 95 10/12/21 09:00 87 94 10/12/21 08:55 90 96 10/12/21 08:50 86 96 10/12/21 08:48 88 187/84 10/12/21 08:45 95 H 96 10/12/21 08:40 97 H 97 10/12/21 08:35 96 H 97 10/12/21 08:30 98 H 98 10/12/21 08:25 100 H 96 10/12/21 08:20 86 97 10/12/21 08:18 92 H 137/76 10/12/21 08:15 102 H 95 10/12/21 08:10 102 H 98 10/12/21 08:05 96 H 98 10/12/21 08:00 99 H 98 98 10/12/21 07:55 96 H 99 10/12/21 07:50 95 H 95 10/12/21 07:48 92 H 146/82 10/12/21 07:45 97 H 97 10/12/21 07:40 104 H 97 10/12/21 07:35 95 H 140/80 97 10/12/21 07:30 90 95 10/12/21 07:25 95 H 95 10/12/21 07:20 94 H 97 10/12/21 07:19 93 H 195/105 10/12/21 07:15 101 H 98 10/12/21 07:10 95 H 99 10/12/21 07:05 89 97 10/12/21 07:00 96 H 98 10/12/21 06:55 94 H 97 10/12/21 06:50 109 H 99 10/12/21 06:48 82 92 10/12/21 06:45 84 93 10/12/21 06:43 87 92 10/12/21 06:40 88 94 10/12/21 06:38 87 92 10/12/21 06:35 77 94 10/12/21 06:31 86 92 10/12/21 06:30 82 94 10/12/21 06:26 86 92 10/12/21 06:25 85 92 10/12/21 06:20 90 96 10/12/21 06:15 94 H 94 10/12/21 06:13 85 92 10/12/21 06:10 87 92 10/12/21 06:08 86 92 10/12/21 06:05 84 93 10/12/21 06:03 89 92 10/12/21 06:00 84 93 10/12/21 05:57 84 91 10/12/21 05:55 85 94 10/12/21 05:53 89 121/71 10/12/21 05:52 103 H 92 10/12/21 05:50 92 H 95 03 05:46 91 H 90 10/12/21 05:45 96 H 95 10/12/21 05:40 89 90 10/12/21 05:39 78 91 10/12/21 05:35 88 95 10/12/21 05:34 90 92 10/12/21 05:30 85 94 10/12/21 05:29 90 92 10/12/21 05:25 85 94 10/12/21 05:20 80 95 10/12/21 05:17 82 91 10/12/21 05:15 81 94 10/12/21 05:10 99 H 95 10/12/21 05:05 87 95 10/12/21 05:00 84 94 98 10/12/21 04:55 81 95 10/12/21 04:53 88 121/71 92 10/12/21 04:50 89 93 10/12/21 04:47 86 92 10/12/21 04:45 83 94 10/12/21 04:41 93 H 92 10/12/21 04:40 86 93 10/12/21 04:35 86 93 10/12/21 04:34 86 92 10/12/21 04:30 87 93 10/12/21 04:25 80 93 10/12/21 04:22 84 92 10/12/21 04:20 87 95 10/12/21 04:16 80 92 10/12/21 04:15 89 97 10/12/21 04:10 97 H 93 10/12/21 04:09 82 86 10/12/21 04:05 83 92 10/12/21 04:03 85 91 10/12/21 04:00 100 H 84 10/12/21 03:58 86 92 10/12/21 03:55 85 94 0306 03:51 87 130/75 10/12/21 03:50 86 93 10/12/21 03:46 86 92 10/12/21 03:45 86 93 10/12/21 03:40 86 93 10/12/21 03:36 84 92 10/12/21 03:35 85 94 10/12/21 03:30 84 94 10/12/21 03:26 81 92 0306/22 03:25 83 94 10/12/21 03:21 83 132/67 10/12/21 03:20 80 92 10/12/21 03:18 85 92 10/12/21 03:15 84 94 10/12/21 03:12 85 92 10/12/21 03:10 84 93 10/12/21 03:06 85 92 10/12/21 03:05 78 94 10/12/21 03:00 81 94 98 10/12/21 02:55 97.8 F 89 20 95 10/12/21 02:51 86 114/65 10/12/21 02:50 90 92 10/12/21 02:45 88 94 10/12/21 02:43 92 H 92 10/12/21 02:40 89 95 10/12/21 02:35 94 H 90 10/12/21 02:30 90 93 10/12/21 02:28 89 92 10/12/21 02:25 99 H 94 10/12/21 02:21 78 124/67 87 10/12/21 02:20 89 97 10/12/21 02:16 84 92 10/12/21 02:15 81 94 10/12/21 02:11 82 91 10/12/21 02:10 81 94 10/12/21 02:05 78 92 10/12/21 02:04 85 91 10/12/21 02:00 79 91 10/12/21 01:57 79 91 10/12/21 01:55 79 92 10/12/21 01:51 74 127/70 10/12/21 01:50 77 92 10/12/21 01:45 81 90 10/12/21 01:44 81 90 10/12/21 01:40 78 92 10/12/21 01:38 84 90 10/12/21 01:35 76 92 10/12/21 01:33 77 92 0306 01:30 81 90 06 01:25 77 92 0306 01:21 78 120/68 10/12/21 01:20 77 96 10/12/21 01:16 74 91 06 01:15 76 90 10/12/21 01:10 79 92 10/12/21 01:09 79 90 10/12/21 01:05 79 95 03/06/22 01:04 74 91 10/12/21 01:00 88 99 96 10/12/21 00:55 78 95 10/12/21 00:54 20 10/12/21 00:50 85 120/70 97 10/12/21 00:45 91 H 96 10/12/21 00:40 73 96 10/12/21 00:39 73 94 10/12/21 00:35 81 95 10/12/21 00:30 92 H 94 10/12/21 00:29 90 94 10/12/21 00:25 88 94 10/12/21 00:24 86 94 10/12/21 00:20 92 H 95 10/12/21 00:15 82 119/67 92 10/12/21 00:10 86 96 10/12/21 00:05 86 97 10/12/21 00:00 92 H 96 10/11/21 23:55 88 98 10/11/21 23:50 83 97 10/11/21 23:45 89 129/76 93 10/11/21 23:40 85 97 10/11/21 23:35 83 96 10/11/21 23:30 93 H 97 10/11/21 23:25 83 97 10/11/21 23:20 81 97 10/11/21 23:15 79 126/62 93 10/11/21 23:10 77 97 97 10/11/21 23:05 80 98 10/11/21 23:00 77 99 10/11/21 22:55 83 98 10/11/21 22:52 98 H 94 10/11/21 22:50 76 97 10/11/21 22:46 75 129/65 10/11/21 22:45 73 96 10/11/21 22:25 89 16 126/88 100 10/11/21 22:10 79 18 122/81 94 10/11/21 21:55 97.7 F 69 22 130/73 97 10/11/21 21:40 65 30 H 125/75 95 05 21:25 74 20 135/73 96 10/11/21 21:20 73 23 129/81 94 10/11/21 21:16 97.5 F L 70 20 133/79 96 10/11/21 21:06 97.5 F L 72 22 128/70 95 10/11/21 19:15 96 H 96 10/11/21 19:10 69 97 05 19:08 65 139/73 10/11/21 19:05 81 95 10/11/21 19:03 83 94 10/11/21 19:00 77 94 10/11/21 18:57 84 94 10/11/21 18:55 91 H 95 10/11/21 18:54 76 137/76 10/11/21 18:51 89 93 10/11/21 18:50 91 H 96 10/11/21 18:45 77 94 10/11/21 18:44 74 94 10/11/21 18:40 80 95 10/11/21 18:38 93 H 160/86 10/11/21 18:37 89 93 10/11/21 18:35 91 H 95 10/11/21 18:32 81 94 10/11/21 18:30 84 96 10/11/21 18:27 89 94 10/11/21 18:25 93 H 95 10/11/21 18:23 89 162/84 10/11/21 18:21 76 94 10/11/21 18:20 78 96 10/11/21 18:16 82 94 10/11/21 18:15 75 95 10/11/21 18:10 82 94 10/11/21 18:08 86 156/79 10/11/21 18:05 76 95 10/11/21 18:00 70 95 10/11/21 17:58 80 94 10/11/21 17:55 70 96 10/11/21 17:53 70 155/73 93 05 17:50 89 94 05 17:47 70 94 05 17:45 67 94 05 17:42 75 94 05 17:40 74 94 05 17:39 85 162/78 05 17:36 83 94 05 17:35 70 94 05 17:30 91 H 97 10/11/21 17:25 78 98 0305 17:23 71 152/80 05 17:20 68 97 0305 17:15 69 97 05 17:10 69 98 10/11/21 17:08 76 157/92 10/11/21 17:05 81 100 10/11/21 17:00 84 100 10/11/21 16:55 84 100 10/11/21 16:53 88 155/88 10/11/21 16:50 93 H 100 10/11/21 16:45 80 96 10/11/21 16:40 78 98 10/11/21 16:39 69 155/81 10/11/21 16:35 79 97 10/11/21 16:30 99 H 158/90 98 10/11/21 16:25 98 H 100 10/11/21 16:23 89 158/90 10/11/21 16:20 89 100 10/11/21 16:15 96 H 100 10/11/21 16:10 107 H 99 10/11/21 16:08 84 147/89 10/11/21 16:05 80 98 10/11/21 16:00 70 97 10/11/21 15:57 98.6 F 10/11/21 15:55 72 99 10/11/21 15:53 65 151/86 10/11/21 15:50 71 100 10/11/21 15:45 73 100 10/11/21 15:40 69 100 10/11/21 15:38 75 149/88 10/11/21 15:35 71 100 10/11/21 15:30 83 100 10/11/21 15:25 73 100 10/11/21 15:23 82 142/87 10/11/21 15:20 75 100 10/11/21 15:15 68 100 10/11/21 15:10 69 99 10/11/21 15:08 67 136/82 10/11/21 15:05 68 100 10/11/21 15:00 70 100 10/11/21 14:55 77 99 05 14:53 80 147/89 10/11/21 14:50 70 100 10/11/21 14:45 70 100 10/11/21 14:42 80 152/87 10/11/21 14:40 71 99 10/11/21 14:38 74 156/106 05 14:35 74 100 05 14:30 74 100 05 14:25 82 99 10/11/21 14:23 83 138/91 10/11/21 14:20 74 98 10/11/21 14:17 69 94 10/11/21 14:15 67 95 10/11/21 14:10 61 97 10/11/21 14:08 59 L 133/78 10/11/21 14:05 68 98 10/11/21 14:00 56 L 94 10/11/21 13:55 75 95 10/11/21 13:54 66 93 10/11/21 13:53 64 133/88 10/11/21 13:50 63 94 10/11/21 13:47 65 93 10/11/21 13:45 60 95 10/11/21 13:40 61 98 10/11/21 13:38 64 137/81 10/11/21 13:35 70 100 10/11/21 13:33 66 0 L 10/11/21 13:30 64 100 Intake and Output 10/11/21 10/12/21 10/12/21 23:59 07:59 15:59 Intake Total 1900 50 240 Output Total 2470 1050 400 Balance -570 -1000 -160 Intake: IV 1900 50 ANCEF/NS 1 GM/50 ML 1 gm 50 In 50 ml @ 100 mls/hr IV Q8H [facility] Rx#:[id number] Oral 240 Output: Urine 2470 1050 400 Indwelling Catheter 450 1050 400 Uretheral (Mendez) 910 Other: Total, Intake Amount 120 Total, Output Amount 200 700 400 Estimated Blood Loss 491 - Exam Breasts: Present: normal Cardiovascular: Present: Regular rate Lungs: Present: Normal air movement Abdomen: Present: normal appearance, soft. Absent: distention, tenderness, guarding Uterus: Present: normal, firm Extremities: Present: edema (non pitting edema in hands and feet) Incision: Present: normal, dry, intact - Labs Labs: Abnormal lab results 10/12/21 10/12/21 10/12/21 Range/Units 00:38 06:50 12:30 Hgb (10.1-14.3) gm/dl Hct (30.3-42.9) % Magnesium 3.70 H 4.20 H 4.50 H (1.7-2.3) mg/dL 10/12/21 Range/Units 12:30 Hgb 9.8 L (10.1-14.3) gm/dl Hct 28.0 L D (30.3-42.9) % Magnesium (1.7-2.3) mg/dL
[2021-10-12] MEDS: MAGNESIUM SULFATE 40GM/1000ML 40 GM/1,000 ML BAG IV SCH (17:21)
[2021-10-12 19:53] LABS: Hematocrit 28.6 % (30.3-42.9); Hemoglobin 9.7 gm/dl (10.1-14.3)
[2021-10-13] MEDS: HYDROcodone/ACETAMINOPHEN 5-325 MG TAB PO PRN ×2 (05:05→11:09)
[2021-10-13] MEDS: IBUPROFEN 600 MG TAB PO PRN ×3 (06:46→20:49)
--- NOTE | 2021-10-13 08:09 | Progress Note ---
Assessment and Plan A: 26 y.o. s/p primary d/t failed IOL, pre eclampsia, s/p mag infusion, POD #2 - Patient Problems (1) Preeclampsia Current Visit: Yes Status: Acute Qualifiers: Trimester: third trimester Qualified Code(s): O14.93 - Unspecified pre- eclampsia, third trimester Plan to address problem: Continue to monitor blood pressures. Continue with Labetalol 200mg BID. Continue to monitor for worsening s/sx of pre eclampsia. (2) Rubella non-immune status, antepartum Current Visit: Yes Status: Acute Plan to address problem: Vaccine before discharge. (3) delivery delivered Current Visit: Yes Status: Acute Plan to address problem: Continue with care. Advance diet as tolerated. Encourage ambulation. Pain medication increased to 2 Bell q 6 hrs. Anticipate discharge home if pt and her blood pressures remain stable. Subjective - Subjective Date of service: 10/13/21 Principal diagnosis: s/p primary , POD #2, s/p mag infusion, pre eclampsia Interval history: Pt denies BISHOP, blurred vision, spots before her eyes, chest pain, shortness of breath, and upper abdominal pain. Pt states that she is having some pain and she believes this is why her blood pressures were elevated. Patient reports: appetite normal, voiding normally, flatus, pain poorly controlled, ambulating normally [place]: doing well Objective - Vital Signs Latest vital signs: Vital Signs Temp Pulse Resp BP Pulse Ox Pulse Ox 10/13/21 06:46 18 10/13/21 06:05 18 10/13/21 05:05 18 10/13/21 04:55 99.8 F H 101 H 20 130/88 96 10/12/21 22:14 104 H 123/79 10/12/21 22:08 100 10/12/21 21:29 100.0 F H 104 H 18 123/79 95 10/12/21 21:18 53 L 57 L 10/12/21 21:10 108 H 98 10/12/21 21:05 117 H 97 10/12/21 21:00 110 H 97 10/12/21 20:57 112 H 92 10/12/21 20:56 99.8 F H 10/12/21 20:55 108 H 123/79 95 10/12/21 20:50 116 H 98 10/12/21 20:48 112 H 137/80 10/12/21 20:45 114 H 96 10/12/21 20:40 110 H 95 10/12/21 20:35 108 H 96 10/12/21 20:30 109 H 97 10/12/21 20:25 111 H 98 10/12/21 20:20 113 H 97 10/12/21 20:18 109 H 118/70 10/12/21 20:15 107 H 96 10/12/21 20:10 105 H 96 10/12/21 20:05 104 H 95 10/12/21 20:00 113 H 94 10/12/21 19:58 109 H 92 10/12/21 19:55 109 H 96 10/12/21 19:50 110 H 97 10/12/21 19:48 109 H 126/77 10/12/21 19:45 109 H 97 10/12/21 19:40 113 H 94 10/12/21 19:35 112 H 95 10/12/21 19:30 110 H 94 10/12/21 19:25 110 H 96 10/12/21 19:20 109 H 94 10/12/21 19:18 112 H 129/75 10/12/21 19:15 109 H 94 96 10/12/21 19:10 111 H 95 10/12/21 19:05 111 H 94 10/12/21 19:00 109 H 95 10/12/21 18:55 110 H 96 10/12/21 18:50 111 H 95 10/12/21 18:48 109 H 131/72 10/12/21 18:45 106 H 96 10/12/21 18:40 109 H 97 10/12/21 18:35 111 H 98 10/12/21 18:30 108 H 97 10/12/21 18:25 107 H 94 10/12/21 18:20 114 H 97 10/12/21 18:18 108 H 131/74 10/12/21 18:15 112 H 97 10/12/21 18:10 111 H 98 10/12/21 18:05 111 H 97 10/12/21 18:00 110 H 96 10/12/21 17:55 106 H 96 10/12/21 17:50 109 H 97 10/12/21 17:48 105 H 124/69 10/12/21 17:45 111 H 97 10/12/21 17:40 106 H 97 10/12/21 17:35 104 H 96 10/12/21 17:30 106 H 95 10/12/21 17:25 108 H 98 10/12/21 17:20 100 H 96 10/12/21 17:18 102 H 128/76 10/12/21 17:15 105 H 96 10/12/21 17:10 102 H 99 10/12/21 17:05 107 H 99 10/12/21 17:00 101 H 96 10/12/21 16:55 103 H 97 10/12/21 16:50 105 H 95 10/12/21 16:48 95 H 120/71 10/12/21 16:45 95 H 97 10/12/21 16:40 100 H 94 10/12/21 16:35 98 H 96 10/12/21 16:30 100 H 96 10/12/21 16:25 98 H 98 10/12/21 16:20 98 H 93 10/12/21 16:18 96 H 125/73 10/12/21 16:15 93 H 95 10/12/21 16:13 90 92 10/12/21 16:10 95 H 93 10/12/21 16:05 96 H 96 10/12/21 16:00 98 H 94 10/12/21 15:55 98 H 98 10/12/21 15:50 98 H 98 10/12/21 15:48 98 H 135/81 10/12/21 15:45 99 H 98 10/12/21 15:40 100 H 97 10/12/21 15:38 99.1 F 18 10/12/21 15:35 97 H 96 10/12/21 15:31 92 H 125/74 10/12/21 15:30 101 H 96 10/12/21 15:25 94 H 96 10/12/21 15:20 104 H 98 10/12/21 15:18 100 H 138/81 10/12/21 15:15 102 H 97 10/12/21 15:10 100 H 97 10/12/21 15:05 99 H 96 10/12/21 15:00 99 H 97 10/12/21 14:55 104 H 97 10/12/21 14:50 100 H 96 10/12/21 14:48 98 H 136/83 10/12/21 14:45 101 H 97 10/12/21 14:40 104 H 97 10/12/21 14:35 102 H 97 10/12/21 14:30 105 H 96 10/12/21 14:25 102 H 96 10/12/21 14:20 104 H 98 10/12/21 14:18 100 H 123/72 10/12/21 14:15 105 H 98 10/12/21 14:10 100 H 96 10/12/21 14:05 102 H 98 10/12/21 14:00 99 H 97 10/12/21 13:55 98 H 98 10/12/21 13:50 101 H 98 10/12/21 13:48 100 H 135/76 10/12/21 13:45 102 H 97 10/12/21 13:40 99 H 99 10/12/21 13:35 104 H 95 10/12/21 13:30 102 H 97 10/12/21 13:25 108 H 95 10/12/21 13:20 98 H 97 10/12/21 13:18 100 H 147/81 10/12/21 13:15 101 H 97 10/12/21 13:10 97 H 95 10/12/21 13:05 98 H 96 10/12/21 13:00 97 H 98 10/12/21 12:55 94 H 96 10/12/21 12:50 92 H 96 10/12/21 12:48 96 H 144/82 10/12/21 12:45 93 H 93 10/12/21 12:40 97 H 97 10/12/21 12:35 97 H 97 10/12/21 12:30 102 H 97 10/12/21 12:25 102 H 97 10/12/21 12:20 98 H 95 10/12/21 12:18 96 H 126/73 10/12/21 12:15 99 H 94 10/12/21 12:10 96 H 98 10/12/21 12:05 96 H 96 10/12/21 12:00 101 H 94 10/12/21 11:55 102 H 95 10/12/21 11:50 98 H 96 10/12/21 11:48 100 H 125/74 10/12/21 11:45 100 H 96 10/12/21 11:40 95 H 94 10/12/21 11:35 92 H 96 10/12/21 11:30 96 H 96 10/12/21 11:25 95 H 139/80 95 10/12/21 11:20 105 H 97 10/12/21 11:18 114 H 174/101 10/12/21 11:15 98 H 96 10/12/21 11:10 103 H 97 10/12/21 11:05 95 H 97 10/12/21 11:00 93 H 95 10/12/21 10:55 97 H 94 10/12/21 10:50 94 H 97 10/12/21 10:48 96 H 141/83 10/12/21 10:45 98 H 96 10/12/21 10:40 97 H 97 10/12/21 10:35 96 H 97 10/12/21 10:30 104 H 97 10/12/21 10:25 97 H 96 10/12/21 10:20 98 H 97 10/12/21 10:18 101 H 141/88 10/12/21 10:15 96 H 97 10/12/21 10:10 100 H 97 10/12/21 10:05 102 H 97 10/12/21 10:00 98 H 98 10/12/21 09:55 97 H 95 10/12/21 09:50 98 H 94 10/12/21 09:48 100 H 147/84 10/12/21 09:45 91 H 94 10/12/21 09:40 94 H 96 10/12/21 09:35 97 H 97 10/12/21 09:34 102 H 92 10/12/21 09:30 97 H 97 10/12/21 09:25 95 H 97 10/12/21 09:20 89 94 10/12/21 09:18 93 H 147/84 10/12/21 09:15 85 94 10/12/21 09:10 95 H 94 10/12/21 09:05 90 95 10/12/21 09:00 87 94 10/12/21 08:55 90 96 10/12/21 08:50 86 96 10/12/21 08:48 88 187/84 10/12/21 08:45 95 H 96 10/12/21 08:40 97 H 97 10/12/21 08:35 96 H 97 10/12/21 08:30 98 H 98 10/12/21 08:25 100 H 96 10/12/21 08:20 86 97 10/12/21 08:18 92 H 137/76 10/12/21 08:15 102 H 95 10/12/21 08:10 102 H 98 Intake and Output 10/12/21 10/13/21 10/13/21 22:59 06:59 14:59 Intake Total 971.667 480 240 Output Total 1250 750 Balance -278.333 -270 240 Intake: IV 971.667 MAGNESIUM SULFATE 40GM/ 971.667 1000ML 40 gm In 1,000 ml @ 2 GM/HR 50 mls/hr IV [facility] Rx#:[id number] Oral 480 Intake, Free Water 240 Output: Urine 1250 750 Indwelling Catheter 1250 Void 750 Other: Total, Intake Amount 480 Total, Output Amount 450 350 - Exam Narrative Exam: Blood pressure ranges have been 130's-140's/80-90's. Breasts: Present: deferred Cardiovascular: Present: Normal S1, Normal S2 Lungs: Present: Clear to auscultation Abdomen: Present: normal appearance, soft, other (Hypoactive bowel sounds.) Vulva: both: normal Uterus: Present: normal Extremities: Present: edema (+ 1 edema noted) Incision: Present: normal, dry, intact, other (No s/sx of infection, no drainage noted. ) - Labs Labs: Abnormal lab results 10/12/21 10/12/21 10/12/21 Range/Units 12:30 12:30 19:41 Hgb 9.8 L (10.1-14.3) gm/dl Hct 28.0 L D (30.3-42.9) % Magnesium 4.50 H 4.60 H (1.7-2.3) mg/dL 10/12/21 Range/Units 19:41 Hgb 9.7 L (10.1-14.3) gm/dl Hct 28.6 L (30.3-42.9) % Magnesium (1.7-2.3) mg/dL
[2021-10-13] MEDS: FERROUS SULFATE 325 MG TAB PO SCH (10:33)
[2021-10-13] MEDS ORDERED: HYDROcodone/ACETAMINOPHEN 5-325 MG TAB PO PRN (13:00)
--- NOTE | 2021-10-13 14:02 | Consultation ---
History of Present Illness - Reason for Consult Consult date: 10/13/21 Reason for consult: mental health evaluation - Chief Complaint Chief complaint: "My blood pressures were high in the office." - History of Present Psychiatric Illness The patient is a 26 year old female with no prior psychiatric history. In my encounter with the patient, she is calm, alert and oriented x 4. The patient states mood as happy. She denies being depressed but states she had suicidal ideation when she was younger; she denies feeling excessively anxious. She is naive to psychotropic medications. The patient denies any current suicidal/homicidal ideation and denies hallucinations. PAST PSYCHIATRIC HISTORY Diagnoses: Denies Suicide attempts or Self-harm behavior: Denies Prior psychiatric hospitalizations: Denies Substance Abuse history: Denies Previous psychiatric medications tried: Denies Outpatient treatment: Denies PAST MEDICAL HISTORY: None reported Family Psychiatric History: None reported or documented SOCIAL HISTORY Marital Status:Single Living Arrangements: Lives with boyfriend Employment Status: employed Access to guns/weapons: Denies Education: 12 grade History of Abuse: none reported Legal History: none REVIEW OF SYSTEMS Constitutional: Negative for weight loss ENT: Negative for stridor Respiratory: Negative for cough or hemoptysis All other systems reviewed and are negative MENTAL STATUS EXAMINATION General Appearance and Behavior: Age appropriate, not wearing appropriate clothes, fair eye contact, Cooperation: Engaged Psychomotor Behavior: Psychomotor normal Mood: "happy" Affect and affective range: Congruent with stated mood Thought Process: Goal directed Thought Content: Reality oriented Speech: Normal tone and pace Suicidal Ideation: Denies Homicidal Ideation: Denies Hallucinations: Denies Delusions:None Insight and Judgment: Limited insight and judgment Memory: Normal Attention: divided attention impaired Orientation: Alert, oriented x4 Assessment: (1) Mental health evaluation Treatment Plan Continue home medications. Risks, benefits and alternatives of medications discussed with the patient, questions answered and consent obtained from patient. PSYCHOTHERAPY: Supportive psychotherapy provided MEDICAL: Per primary team DELIRIUM PRECAUTIONS: Please re-orient patient frequently, keep lights on during the day, and minimize benzodiazepines and opiates as these medications could w orsen patient's confusion. HAY CHOPPER: per primary DISPOSITION: Do not recommend acute psychiatric inpatient treatment. [facility] will provide patient with psychiatric outpatient resources. Will sign off. Thanks Thank you for the consult. Case discussed with Dr. Kilpatrick who agrees with current disposition Medications and Allergies Medications and Allergies Medications and Allergies Allergies Allergy/AdvReac Type Severity Reaction Status Date / Time No Known Allergies Allergy Unverified 10/07/21 14:14 Home Medications Medication Instructions Recorded Confirmed Last Taken Type Vitamin 1 tab PO DAILY 10/08/21 10/08/21 Unknown History Ferrous Sulfate [Feosol 325 MG tab] 325 mg PO BID #60 tablet 10/11/21 Unknown Rx Ibuprofen [Motrin] 800 mg PO TID PRN #30 tablet 10/11/21 Unknown Rx labetaloL [Labetalol 200mg TAB] 200 mg PO BID #60 tablet 10/11/21 Unknown Rx oxyCODONE /ACETAMINOPHEN [Percocet 1 tab PO Q6HR PRN #20 tablet 10/11/21 Unknown Rx 5/325 mg] Active Meds: Active Medications Hydrocodone Bitart/Acetaminophen (Hydrocodone/Acetaminophen 5-325 Mg Tab) 2 each PO Q6H PRN PRN Reason: Pain, Moderate (4-6) Ferrous Sulfate (Ferrous Sulfate 325 Mg Tab) 325 mg PO QDAY [facility] Last Admin: 10/13/21 10:33 Dose: 325 mg Dextrose/Lactated Ringer's (D5lr) 1,000 mls @ 50 mls/hr IV DIRECT PHAN Oxytocin/Sodium Chloride (Pitocin/Ns 30 Unit/500ml) 30 units in 500 mls @ 40 mls/hr IV TITR PHAN Ibuprofen (Ibuprofen 600 Mg Tab) 600 mg PO Q6H PRN PRN Reason: Pain, Mild (1-3) Last Admin: 10/13/21 13:46 Dose: 600 mg Labetalol HCl (Labetalol 200 Mg Tab) 200 mg PO BID [facility] Last Admin: 10/13/21 10:33 Dose: 200 mg Magnesium Hydroxide (Magnesium Hydroxide (Mom) Oral Liqd Udc) 30 ml PO QHS PRN PRN Reason: Constip Unrelieved By Senna Multi-Ingredient Ointment (Lanolin/Zinc/Dimethicone (Lansinoh) 7 Gm) 1 applic TP PRN PRN PRN Reason: dryness/cracking Multivitamins/Iron/Calcium ( Xcm90-Lg Fumarate-Folic Acid Vit Tab) 1 each PO QDAY [facility] Last Admin: 10/13/21 10:33 Dose: 1 each Naloxone HCl (Naloxone 0.4 Mg/1 Ml Inj) 0.1 mg IV Q2MIN PRN PRN Reason: Res Rate </= 8 or 02 SAT < 92% Ondansetron HCl (Ondansetron 4 Mg/2 Ml Inj) 4 mg IV Q8H PRN PRN Reason: Nausea And Vomiting Witch Gabriela/Glycerin (Witch Gabriela/ Glycerin Pad) 1 each TP PRN PRN PRN Reason: Hemorrhoids/cleansing/soothing Mental Status Exam - Vital signs Last Vital Signs Temp 99.1 F 10/13/21 07:56 Pulse 89 10/13/21 10:33 Resp 20 10/13/21 07:56 BP 136/84 10/13/21 10:33 Pulse Ox 97 10/13/21 07:56 Results Result Diagrams: 10/12/21 19:41 10/07/21 15:05 Abnormal lab results 10/12/21 10/12/21 Range/Units 19:41 19:41 Hgb 9.7 L (10.1-14.3) gm/dl Hct 28.6 L (30.3-42.9) % Magnesium 4.60 H (1.7-2.3) mg/dL All other labs normal.
[2021-10-14] MEDS: IBUPROFEN 600 MG TAB PO PRN (06:09)
--- NOTE | 2021-10-14 10:02 | Discharge Summary ---
Providers - Providers Date of Admission: 10/09/21 14:53 Date of discharge: 10/14/21 Attending physician: JLUIS VILLALTA 10/12/21 00:19 Consult to Training And Development Assistant [CONS] Routine Reason For Exam: Primary care physician: JLUIS VILLALTA Hospitalization Reason for admission: IOL Condition: Good Pertinent studies: post op H&H 9.7/11.7 asymptomatic anemia d/t acute blood loss Procedures: primary c/s Hospital course: IOL, failed induction, primary c/s, uncomplicated postop course Disposition: 01 HOME / SELF CARE / HOMELESS Final Discharge Diagnosis (Prints w/discharge instructions): postop c/s delivery Time spent for discharge: 25 - Discharge Diagnoses (1) depression Status: Acute (2) delivery delivered Status: Acute Core Measure Documentation - Palliative Care Palliative Care/ Comfort Measures: Not Applicable - Core Measures Any of the following diagnoses?: none Exam - Constitutional Vitals: Temp Pulse Resp BP Pulse Ox 98.1 F 88 20 132/75 98 10/14/21 08:20 10/14/21 08:20 10/14/21 08:20 10/14/21 08:20 10/14/21 08:20 General appearance: Present: no acute distress, well-nourished - EENT Eyes: Present: PERRL ENT: hearing intact, clear oral mucosa - Neck Neck: Present: supple, normal ROM - Respiratory Respiratory effort: normal Respiratory: bilateral: CTA - Cardiovascular Rhythm: regular Heart Sounds: Absent: rub, click - Extremities Extremities: No edema Peripheral Pulses: within normal limits - Abdominal General gastrointestinal: Present: soft, non-tender, non-distended, normal bowel sounds Female genitourinary: Present: normal - Integumentary Integumentary: Present: clear, warm, dry - Musculoskeletal Musculoskeletal: gait normal, strength equal bilaterally - Psychiatric Psychiatric: appropriate mood/affect, intact judgment & insight - Neurologic Neurologic: CNII-XII intact, moves all extremities - Additional findings Additional findings: lochia scant, fundus firm, incision D&I open to air Plan Activity: advance as tolerated Diet: regular Wound: open to air, keep clean and dry Follow up with: JLUIS VILLALTA MD [Primary Care Provider] - 7 Days (Congratulations! Please call [phone] to schedule an incision check in 1 week. Call for any questions or concerns or if you develop a severe headache, visual changes or pain in your upper abdomen.) Prescriptions: Ferrous Sulfate [Feosol 325 MG tab] 325 mg PO BID #60 tablet labetaloL [Labetalol 200mg TAB] 200 mg PO BID #60 tablet Ibuprofen [Motrin] 800 mg PO TID PRN #30 tablet PRN Reason: Pain oxyCODONE /ACETAMINOPHEN [Percocet 5/325 mg] 1 tab PO Q6HR PRN #20 tablet PRN Reason: Pain
[2021-10-14 13:09] VITALS: BP 136/80
== END 2021-10-14 12:30 | disposition home or self-care (01) | DRG 787 ==
LOC: TRG 13:26 → APU 13:31 → TRG 16:43 → UNDOADMOB 16:43 → LD 16:43 → INTOOBSV 16:43 → OBSVTOIN 16:43 → LD 17:58 → OBSVTOIN 10-09 14:53 → OB 10-12 22:04
PROVIDERS: ADMIT Obstetrics & Gynecology; ATTEND Obstetrics & Gynecology
PROC: 3E0P7VZ Introduction of Hormone into Female Reproductive, Via Natural or Artificial Opening (ICD-10-PCS; 2021-10-10)
PROC: 10D00Z1 Extraction of Products of Conception, Low, Open Approach (ICD-10-PCS; principal; 2021-10-11)
PROC: 3E0R3BZ Introduction of Anesthetic Agent into Spinal Canal, Percutaneous Approach (ICD-10-PCS; 2021-10-11)
PROC: 00HU33Z Insertion of Infusion Device into Spinal Canal, Percutaneous Approach (ICD-10-PCS; 2021-10-11)
PROC: 10907ZC Drainage of Amniotic Fluid, Therapeutic from Products of Conception, Via Natural or Artificial Opening (ICD-10-PCS; 2021-10-11)
PROC: 3E0234Z Introduction of Serum, Toxoid and Vaccine into Muscle, Percutaneous Approach (ICD-10-PCS; 2021-10-12)
DX: O14.94 Unspecified pre-eclampsia, complicating childbirth (principal); D62 Acute posthemorrhagic anemia; Z3A.36 36 weeks gestation of pregnancy; Z20.822 Contact with and (suspected) exposure to COVID-19; Z37.0 Single live birth; Z23 Encounter for immunization; O99.52 Diseases of the respiratory system complicating childbirth; J45.909 Unspecified asthma, uncomplicated; O61.9 Failed induction of labor, unspecified; O99.214 Obesity complicating childbirth; E66.01 Morbid (severe) obesity due to excess calories; O90.81 Anemia of the puerperium; O99.345 Other mental disorders complicating the puerperium; F53.0 Postpartum depression
CPT/HCPCS: 36415; 59025; 59200; 76815; 81001; 82565; 82570; 83615; 83735; 84156; 84450; 84460; 84550; 85014; 85018; 85027; 86592; 86762; 86850; 86900; 86901; 87086; 90707; G0378; J3490; J0595; J0690; J1100; J1885; J2274; J2405; J2590; J2765; J3010; J3475; J7120; U0003